=== PATIENT | male | born 1935 | race Two or more races ===

== ENCOUNTER 2025-04-18 22:02 | Inpatient (IN) | payer MEDICARE, MEDICAID, SELFPAY ==
--- NOTE | ~2025-04-18 | XR_ITS ---
CLINICAL HISTORY: cough, crackles 1 view chest x-ray. Comparison: None Findings: No consolidation or effusion. Cardiac and mediastinal contours appear unremarkable. Bones unremarkable. Impression: 1. No acute pulmonary disease. This document has been electronically signed by: Smith Echeverria MD on 04/20/2025 16:01:06
--- NOTE | ~2025-04-18 | CT_ITS ---
CLINICAL HISTORY: cool left foot, ? leg arterial clot CT angiography abdomen and pelvis with bilateral lower extremity runoff with IV contrast.MIP post processing. Comparison: None provided Findings: CT abdomen: There is a 6 mm exophytic cyst off the lower pole of the right kidney. Visualized portion of the left kidney is unremarkable. No dilated small bowel. No free fluid or free air. CT pelvis: Numerous diverticuli throughout the colon, especially the sigmoid colon. No findings of diverticulitis. Urinary bladder is moderately distended. Prostate gland is mildly enlarged. Bilateral lower extremities: No acute fracture bony destructive change. No focal muscle atrophy. No soft tissue mass seen. Vascular evaluation: Moderate vascular calcification of the abdominal aorta without dissection or aneurysmal dilatation. This extends to the iliac arteries bilaterally where there is diffuse calcification. Vessels remain patent. Both common femoral arteries are patent. Left leg: Mild vascular calcification of the left femoral artery. Moderate vascular calcification of the popliteal artery. Three-vessel runoff is identified. Moderate vascular calcification of the left calf arteries with areas of high-grade stenosis or short-segment occlusions of the anterior tibialis artery. Posterior tibialis artery and peroneal artery appear to be patent extending into the level of the ankle. Right leg: Right femoral artery is patent with moderate vascular calcification. Right popliteal artery is patent. There is three-vessel runoff. There are areas of moderate stenosis within the anterior and posterior tibialis arteries. Potential occlusion of the distal anterior tibialis artery. Posterior tibialis artery is patent throughout. IMPRESSION: 1. Multifocal vasculopathy as above. There is high-grade stenosis or short-segment occlusions of the left anterior tibialis artery. Potential occlusion of the distal right anterior tibialis artery. This document has been electronically signed by: Grayson Wood MD on 04/19/2025 01:36:21
--- NOTE | ~2025-04-18 | US_ITS ---
EXAMINATION: US TRIPLEX LOWER EXTREMITY, BILATERAL CLINICAL INFORMATION: Swelling, lower extremities COMPARISON: None available. TECHNIQUE: Color-flow triplex imaging with spectral analysis and compression Doppler were performed on the bilateral lower extremities. FINDINGS: Respiratory variation, normal compression and augmented flow are demonstrated in the interrogated common femoral vein, superficial femoral vein, profunda femoral vein, popliteal vein and midcalf peroneal and posterior tibial venous segments both lower extremities. There is no Caldwell's cyst. US/US venous duplex LE BI IMPRESSION: No acute deep venous thrombosis interrogated veins both lower extremities. Negative for DVT. Electronically signed by: Khoa Mora MD 04/19/2025 03:51 PM EDT
[2025-04-18 22:11] VITALS: BP 124/72; PULSE 60; RESP 14; TEMP 36.7; O2SAT 95; BMI 26.9
--- NOTE | 2025-04-18 22:18 | ED_ITS ---
HPI - General Adult General Chief complaint: Extremity Problem Stated complaint: both feet swollen, pain Time Seen by Provider: 04/18/25 22:18 History of Present Illness ED Provider: Keaton OVIEDO narrative: The patient is an 89-year-old man with a history of dementia, hypertension, chronic kidney disease, hypothyroidism, and hyperlipidemia. According to his daughter and son-in-law he has been having worsening edema of both of his feet over the last week. He has been seen twice by his primary care doctor and has been started on a diuretic, hydrochlorothiazide it. He has been on the hydrochlorothiazide for about a month. The swelling has continued. Tonight the family was concerned because the left foot looked discolored and they brought him to the emergency room. The patient has not complained of any pain. The patient seems pleasantly demented and has no complaints at all. There has been no chest pain or shortness of breath. As far as the daughter knows the patient has no history of vascular disease but she says that the patient has lived in [place] a lot and she does not know all of his medical history. She believes that at 1 point he had a cardiac catheterization in [place] but she does not know what that might have shown. She does not know if he has ever had an episode of atrial fibrillation. There has been no fever, sweats, chills, no abdominal pain, no nausea or vomiting. Related Data Allergies Allergy/AdvReac Type Severity Reaction Status Date / Time No Known Allergies Allergy Verified 04/18/25 22:16 Review of Systems 2 Review of Systems: Yes all other systems are reviewed and are negative [facility] Past Medical History Medical History (Updated 04/19/25 @ 06:38 by Roxanne Flores PA-C) Dementia Hypothyroid Non-sustained ventricular tachycardia Social History Social History Smoked in Last 30 Days: No Advance Directives: No Advance Directives Information Provided: Yes Do you have a plan to hurt others: No Plan Physical Exam ED Vital Signs: Vital Signs - 24 hr 04/18/25 22:11 04/19/25 00:43 04/19/25 02:19 Temperature 98.0 F 98.0 F Pulse Rate 60 65 58 Respiratory Rate 14 16 15 Blood Pressure 124/72 115/51 L 124/61 Pulse Oximetry 95 96 95 Oxygen Delivery Method Room Air Room Air Room Air BMI result Body Mass Index 27.1 Const Other: The patient is awake and alert. He seems like a pleasantly demented 89-year-old who does not appear in any distress. HENMT Other: The face is symmetrical. ?Mucous membranes moist. Eyes General: appearance normal, both eyes and all related structures Neck Neck: Yes full ROM and Yes no JVD Resp Effort & Inspection: normal respiratory effort and symmetric chest movement Cardio Rate: bradycardic Rhythm: regular rhythm Heart sounds: S1 normal heart sound present and S2 normal heart sound present GI Other: Abdomen is soft and nontender Skin Other: There is some edema to the both feet and ankles. This is more apparent on the left side. The skin of the left foot feels cooler than the skin of the right foot. No erythema. No hussein discoloration of the skin of the left foot. Neuro Other: The patient is awake and alert. He seems pleasantly demented. Cranial nerves seem grossly intact. He seems to move his extremities symmetrically. Extrem Other: There is a edema to both feet and ankles, more so on the left side. Left foot and ankle feel cool compared to the right side. I cannot appreciate pulses in either foot. However cap refill is present in both feet. Medications Administered Generic Name Dose Route Start Last Admin Trade Name Freq PRN Reason Stop Dose Admin Heparin Sodium/Sodium Chloride 25,000 unit in 250 mls @ 0 mls/hr 04/19/25 02:30 04/19/25 03:37 Heparin Sodium,Porcine/1/2ns IVCONT 14 units/kg/hr .Q0M DANIEL 9.39 mls/hr Protocol Administration Per Protocol Discontinued Medications Generic Name Dose Route Start Last Admin Trade Name Freq PRN Reason Stop Dose Admin Heparin Sodium (Porcine) 5,300 unit 04/19/25 02:20 04/19/25 03:25 Heparin Sodium,Porcine 5,000 Unit/Ml Vial 80 unit/kg (5300 unit) 04/19/25 02:21 5,300 unit IVPUSH Administration ONCE ONE Sodium Chloride 1,000 mls @ 999 mls/hr 04/19/25 01:00 04/19/25 02:19 Ns IV 04/19/25 02:00 Infused .Q1H1M DANIEL Infusion Iohexol 100 ml 04/19/25 00:40 04/19/25 00:41 Iohexol 350 Mg/Ml 100 Ml Infus..Btl IV 04/19/25 00:41 80 ml ONCE ONE Administration Metoprolol Tartrate 12.5 mg 04/19/25 05:21 04/19/25 06:08 Metoprolol Tartrate 12.5 Mg Halftab PO 04/19/25 05:22 12.5 mg ONCE ONE Administration Protocol Medical Decision Making Medical Decision Making [facility] Narrative: The patient is an 89-year-old male who was brought to the hospital today because the family felt that his left foot looked blue. He has been having problems with bilateral lower extremity swelling of the feet and ankles over the last month or so. He has been seen by his PCP and has been started on hydrochlorothiazide as a diuretic. Tonight there was a discoloration of the foot that the family found concerning and the patient was brought to the hospital. The patient had not seemed to have any pain associated with this color change but the patient is demented and seems to be a poor historian. My initial exam I thought that the left foot felt fairly cool compared to the right foot although there was no discoloration. I felt the left foot had intact capillary refill despite the coolness. My initial impression therefore was that the patient may have had some degree of arterial insufficiency causing cyanosis to the left foot with spontaneous improvement. I examined the patient a 2nd time fairly soon after my initial exam and I thought that the temperature differential between the 2 ft was lessening. Also at the time that I 1st examined him he was on a pulse oximeter and seemed to have a heart rate in the 40s obvious irregularity to his heart rate and at no point did he seemed to exhibit atrial fibrillation but I had some concern that the patient might have had some ischemia, possibly from a thrombotic event from a cardiac issue or possibly more of an occlusive event from vascular disease in the leg itself. I ordered heparin for the patient. A CT angio was done that shows vascular disease without definite thrombus. 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 In addition to the patient has cool left foot he has a sodium of 124 and he was also noted on the monitor to have fairly frequent episodes of brief runs of what may be DVT. These were all nonsustained and for the most part seemed to have 3 or 4 beats. I reviewed the case with Dr. Jones vascular surgery who did not feel there was an indication for aggressive intervention based on my description of the patient's exam. I presented the case to the hospitalist who wanted cardiology to comment on the apparent a frequent episodes of nonsustained ventricular tachycardia. Dr. Salomon recommended metoprolol tartrate 12.5 mg b.i.d.. The patient was given a dose of metoprolol tartrate and was admitted to the hospitalist service on a heparin drip for further evaluation by vascular surgery and Cardiology and an echocardiogram Lab Data 04/19/25 02:37 04/19/25 06:36 Labs: Lab Results 04/18/25 04/19/25 Range/Units 23:00 02:37 WBC 8.7 6.9 (4.8-10.8) X10*3/uL RBC 4.46 L 3.88 L (4.60-5.80) X10*6/uL Hgb 15.1 13.2 L (14.0-18.0) g/dl Hct 41.8 L 36.4 L (42.0-52.0) % MCV 93.7 93.8 (80.0-98.0) fL MCH 33.9 H 34.0 H (27.0-33.0) pg MCHC 36.1 H 36.3 H (31.0-36.0) g/dl RDW 11.7 11.8 (11.0-16.0) % Plt Count 152 L 127 L (160-400) X10*3/uL MPV 10.3 10.5 (9.4-12.4) fL Immature Gran % (Auto) 1.2 H (0.0-0.4) % Neut % (Auto) 66.8 (45-73) % Lymph % (Auto) 19.2 L (20-40) % Ritchie % (Auto) 10.4 (2-11) % Eos % (Auto) 2.1 (0-4) % Baso % (Auto) 0.3 (0-2) % Lymph # (Auto) 1.7 (1.2-4.9) X10*3/uL Ritchie # (Auto) 0.9 (0.1-1.2) X10*3/uL Eos # (Auto) 0.2 (0.0-0.4) X10*3/uL Baso # (Auto) 0.0 (0.0-0.2) X10*3/uL Abs Immat Gran (auto) 0.10 H (0.00-0.03) X10*3/uL Absolute Neuts (auto) 5.8 (2.0-8.3) x10*3/uL Absolute Nucleated RBC 0.000 0.000 (0.0-0.012) X10*3/uL Nucleated RBC % (auto) 0.0 0.0 (0.0-0.2) /100WBC PT 11.3 (10.9-12.4) SEC INR 1.0 (0.9-1.1) aPTT Heparin Protocol 26.8 L (53-77.9) SEC Sodium 124 L (135-145) mmol/L Potassium 4.2 (3.3-5.1) mmol/L Chloride 90 L (96-108) mmol/L Carbon Dioxide 25 (22-29) mmol/L Anion Gap 13 (12-20) BUN 16 (9-16) mg/dL Creatinine 1.63 H (0.5-1.4) mg/dL Estim Creat Clear Calc 25.8 Estimated GFR 40 Random Glucose 86 (60-115) mg/dL Calcium 9.4 (8.4-10.2) mg/dL Magnesium 2.0 (1.6-2.6) mg/dL Total Bilirubin 0.6 (0.0-1.0) mg/dL Direct Bilirubin 0.2 (0.0-0.5) mg/dL AST 23 (5-37) U/L ALT 21 (0-40) U/L Alkaline Phosphatase 120 H (39-117) U/L Total Creatine Kinase 153 (38-174) U/L Troponin I High Sens 6.8 (<3.5-35.0) ng/L NT-Pro-B Natriuret Pep 193.8 (<300) pg/mL Total Protein 6.8 (6.5-8.0) g/dL Albumin 4.5 (3.5-5.0) g/dL TSH 8.46 H (0.32-4.0) uIU/mL Free T4 1.12 (0.71-1.85) ng/dL Critical Care Time Critical Care Time Critical Care Time: Yes Total Critical Care Time: 35 Attestation: The patient was critically ill with a high probability of imminent or life- threatening deterioration. ?I spent greater than 30 minutes of discontinuous time evaluating the patient, delivering critical care at the bedside, discussing evaluating data with consultants. ?Critical care time does not include time spent performing separately billable procedures or teaching. ?Time spent performing critical care with 35 minutes. Discharge Plan Discharge Clinical Impression: Ischemia of left lower extremity, Hyponatremia, Non-sustained ventricular tachycardia Patient Disposition: Admitted As Inpatient
--- NOTE | 2025-04-18 22:28 | ECG_ITS ---
Test Reason : swelling Blood Pressure : */* mmHG Vent. Rate : 60 BPM Atrial Rate : 60 BPM P-R Int : 146 ms QRS Dur : 104 ms QT Int : 402 ms P-R-T Axes : 21 -22 22 degrees QTcB Int : 402 ms Normal sinus rhythm Possible Lateral infarct , age undetermined Inferior infarct , age undetermined Abnormal ECG No previous ECGs available Referred By: Aly Pugh Electronically Signed By: GABBY AVINA MD
--- OUTSIDE RECORDS SUMMARY | 2025-04-18 22:41 | XMS_ITS | Clinical Summary ---
Author Organization [facility] Address [address] [place] [address] Care Team Providers Care Pulmonary Specialist Name Role Phone Loenor Deleon PA-C Primary Care Provider [phone] Source Comments PLEASE NOTE, if this patient is a minor, it may be UNLAWFUL to discuss sensitive information that is contained in these records (such as FAMILY PLANNING, MENTAL HEALTH or SUBSTANCE ABUSE) with the minor patient's parent or other person without the patient's specific authorization.[facility] Allergies No known active allergies Medications ciclopirox (PENLAC) 8 % solution 020 Active miscellaneous medical supply miscIndications:M katia impairment of gradual onset,At risk for falls by miscellaneous route daily Shower chair. Lifetime need it. 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 Walker with seat and four wheels. Lifetime need it. BMI 26.98 1 Each 023 Active acetaminophen (TYLENOL) 500 mg tabletIndications :Right hip pain Take 2 Tablets by mouth every 6 (six) hours as needed for pain 60 Tablet 1 023 Active diclofenac sodium (VOLTAREN) 1 % gelIndications:Ri ght hip pain Apply topically 2 (two) times daily 100 g 1 023 Active MISCELLANEOUS MEDICAL SUPPLY MISCIndications:U rinary incontinence, unspecified type by miscellaneous route daily. Order incontinence pad/liners for incontinence. Use 1-x daily prn. Need lifetime 100 Each Active MISCELLANEOUS MEDICAL SUPPLY MISCIndications:P oor appetite by miscellaneous route 2 (two) times a day Ensure to take twice a day. BMI 25.42. Lifetime need it. 60 Each 2 024 Active MISCELLANEOUS MEDICAL SUPPLY MISCIndications:U rinary incontinence, unspecified type Order Pull up Diapers Size small for incontinence. Use 1-8x daily prn. Need lifetime. 100 Each 024 Active MISCELLANEOUS MEDICAL SUPPLY MISCIndications:U rinary incontinence, unspecified type by miscellaneous route daily. Order xlarge gloves. Use as needed. Need lifetime 100 Each 024 Active MISCELLANEOUS MEDICAL SUPPLY MISCIndications:U rinary incontinence, unspecified type by miscellaneous route daily. Order discopasble wipes for incontinence. Use 1-8x daily as needed. Need lifetime. 100 Each 024 Active hydrOXYzine HCL (ATARAX) 25 mg tabletIndications :Insomnia, unspecified type Take 1 Tablet by mouth nightly at bedtime as needed for sleep 30 Tablet 025 Active atorvastatin (LIPITOR) 40 mg tabletIndications :Mixed hyperlipidemia TAKE 1 TABLET BY MOUTH DAILY 90 Tablet 2 025 Active levothyroxine 88 mcg tabletIndications :Hypothyroidism, unspecified type Take 1 Tablet by mouth every morning before breakfast. 90 Tablet 025 Active hydroCHLOROthiazi de (HYDRODIURIL) 25 mg tabletIndications :Peripheral edema,Hypertensio n, unspecified type Take 1 Tablet by mouth once daily. 90 Tablet 3 025 Active compr.stocking,kn ee,long,largeIndi cations:Periphera l edema,Hypertensio n, unspecified type Compress 10-15 mmHg for peripheral edema. Disp 2 x99 years. 2 Each 025 Active mirtazapine (REMERON) 30 mg tabletIndications :Insomnia, unspecified type TAKE 1 TABLET BY MOUTH EVERY NIGHT AT BEDTIME 90 Tablet 025 Active lisinopriL 10 mg tabletIndications :Essential hypertension,BMI 25.0-25.9,adult TAKE 1 TABLET BY MOUTH DAILY 90 Tablet 1 025 Active melatonin 3 mg tabletIndications :Insomnia, unspecified type Take 1 Tablet by mouth nightly at bedtime as needed for sleep for up to 90 days 90 Tablet 025 2024 Discontinued(T herapy completed/Not needed) lisinopriL 10 mg tabletIndications :Essential hypertension,BMI 25.0-25.9,adult TAKE 1 TABLET BY MOUTH DAILY 90 Tablet 1 025 2024 Discontinued mirtazapine (REMERON) 30 mg tabletIndications :Insomnia, unspecified type TAKE 1 TABLET BY MOUTH EVERY NIGHT AT BEDTIME 90 Tablet 025 2024 Discontinued furosemide (LASIX) 40 mg tabletIndications :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 5 Tablet 025 2024 Discontinued(T herapy completed/Not needed) compr.stocking,kn ee,long,largeIndi cations:Periphera l edema Compress 10-15 mmHg for peripheral edema. Disp 2 x99 years for peripheral edema. 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 Diagnosed on 09/2020 [facility]. Onychomycosis 05/02/2020 Hypothyroidism 08/15/2019 Essential hypertension 06/26/2019 History of colon cancer 06/26/2019 Overview (06/26/2019): Diagnosed at age 72. Had operation and chemotherapy. Last colonoscopy 2 years ago in [place]. 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 Had surgery 2 years ago for clogged artery in [place]. Daughter does not know much information. Pt reports having a vein in the heart that doctors told him can not operate on. Assessment & Plan (06/26/2019 9:39 AM EST): Memory impairment of gradual onset 06/26/2019 Encounters Date Type Department Care Team Description 04/05/2025 Results Follow-Up [address] [id number] Molly Ordoñez PA-C 03/29/2025 4:40 PM EDT Office Visit [address] [phone] Child, TateGIRISH Maria C 03/23/2025 2:20 PM EDT Office Visit [address] [phone] Molly Ordoñez PA-C from Last 3 Months Immunizations Immunization Administration Dates Next Due Flu, Adjuvant, 65y+ (Fluad) 06/08/2021 Flu, High Dose, 65y+, Fluzone High Dose 04/12/20 22,04/22/2020 Moderna COVID-19 Vaccine, re d cap blue label, 12+ Primary Series 01/18/2022,09/13/2020,08/16/2020 PNEUMOCOCCAL CONJUGATE PCV 13 11/07/2020 PNEUMOCOCCAL CONJUGATE PCV 20 (Prevnar 20) 04/12 TDAP 04/13/2019 ZOSTER VACCINE, RECOMBINANT (SHINGRIX) 1,11/07/2020 Family History Relation Name Status Comments Sister Alive Social History Tobacco Use Types Packs/Day Years Used Date Smoking Tobacco: Never Smokeless Tobacco: Never Tobacco Cessation:Counseling Given: Not Answered Alcohol Use Standard Drinks/Week Comments Never 0 (1 standard drink = 0.6 oz pur e alcohol) Social Connections Answer Date Recorded How often do you feel lonely or isolated from th ose around you? 1 07/04/2024 Financial Resource Strain Answer Date R ecorded Hard to pay for: Food 1 07/04/2024 Stress Answer Date Recorded Do you feel these kinds of stress these days? 1 07/04/2024 Physical Activity Answer Date Recorded Physical Activity 0 06/26/2019 Food Insecurity Answer Date Recorded Hard to pay for: Food 1 07/04/2024 Transportation Needs Answer Date Record ed Hard to pay for: Transportation 1 07/04/2024 Housing Stability Answer Date Recorded Hard to pay for: Rent/Mortgage payment 1 07/04/2024 Safety and Environment Answer Date Omer rded Safety 0 06/26/2019 Utilities Answer Date Recorded Hard to pay for: Utilities 1 07/04 Employment Answer Date Recorded Employment 0 06/26/2019 Sex and Gender Information Value Date Recorded Sex Assigned at Male 06/26/2019 7:02 AM PST Legal Sex Male 12:16 PM PST Gender Identity Male 06/26/2019 7:02 AM PST Sexual Orientation Straight 06/26/2019 7: 02 AM PST Last Filed Vital Signs Vital Sign Reading Time Taken Comments Blood Pressure 157/82 03/29/2025 4:38 PM EDT Pulse 74 03/29/2025 4:38 PM EDT Temperature 37.1 C (98.7 F) 03/29/2025 4:38 PM EDT Respiratory Rate 16 03/29/2025 4:38 PM EDT Oxygen Saturation 96% 12/17/2024 3:36 PM EDT Inhaled Oxygen Concentration - - Weight 68.9 kg (152 lb) 03/29/2025 4:38 PM EDT Height 157.5 cm (5' 2 ) 10/28/2023 3:21 PM EDT Body Mass Index 27.8 10/28/2023 3:21 PM EDT Plan of Treatment Upcoming Encounters Date Type Department Care Team (Late st Contact Info) Description 04/29/2025 4:00 PM EST Office Visit [facility] [address] [place] [address] Leonor Deleon PA-C [address] [place] [address] Health Maintenance Due Date Last Done Comments Advanced Care Planning 1935 Medicare Annual Wellness Visit 1953 Imm-RSV (adult) (1 - 1-dose 75+ series) 2010 Falls Prevention 05/25/2023 05/25/2022, , 08/15/2019 Flz-HHARU-74 (4 - season) 2025 01/18/2022, 09/13/2020, 08/16/2020 Imm-Influenza (#1) 2025 03/31/2024, 1 , 06/08/2021, Additional history exists TSH Monitoring 07/04/2025 07/04/2024, 08/2023, 11/15/2022, Additional history exists Tobacco Screening 07/04/2025 07/04/2024 Lipid Screening 03/29/2026 03/29/2025, 10/26, 01/18/2022, Additional history exists Imm-DTaP/Tdap/Td (2 - Td or Tdap) 04/13/2029 019 Imm-Zoster, Recombinant Completed 01/14/2021, 11/07 Imm-Pneumococcal 50+ Completed 04/12/2022, 11/08/19 21 Alcohol and Drug Screen Completed 07/04/19, 10/28/2023, 11/15/2022, Additional history exists Depression Annual Screen Completed 07/04/2024, 07/28 Procedures Procedure Name Priority Date/Time Associated Diagnosis Comments BNP,NT PRO BNP Routine 03/29/2025 9:26 AM EDT LIPIDS W RFLX TO DIRECT LDL Routine 03/29/2025 9:26 AM EDT 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 Essential hypertension Bilateral swelling of feet COMPREHENSIVE METABOLIC PANEL Routine 03/29/2025 9:26 AM EDT 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 Essential hypertension Bilateral swelling of feet BLOOD COUNT COMPLETE AUTO&AUTO DIFRNTL WBC Routine 03/29/2025 9:26 AM EDT 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 Essential hypertension Bilateral swelling of feet MEDICATIONS SCANNED DOCUMENT 03/06/2025 3:00 AM EDT OTHER ORDERS SCANNED DOCUMENT 02/27/2025 3:00 AM EDT OTHER ORDERS SCANNED DOCUMENT 02/27/2025 3:00 AM EDT TSH W/RFLX FREE T4 Routine 07/04/2024 3: 03 PM EST Hypothyroidism, unspecified type from Last 3 Months or Most Recently Relevant to Health Maintenance Results * BNP,NT PRO BNP Routine (03/29/2025 9:26 AM EDT) PROBNP, N TERMINAL 155 <450 pg/mL 03/30/2025 8:02 PM EDT [facility] 03/29/2025 9:26 AM EDT 03/30/2025 4:28 PM EDT [employer] - 03/30/2025 8:03 PM EDT FASTING:YES Molly Ordoñez PA-C LAB - BLOOD DRAW Final Resul t [facility] [address] [place] [phone], [facility] [address] [id number] * LIPIDS W RFLX TO DIRECT LDL Routine (03/29/2025 9:26 AM EDT) CHOLESTEROL, TOTAL 163 <200 mg/dL 03/30/2025 2:39 PM EDT [facility] HDL CHOLESTEROL 56 > OR = 40 mg/dL 03/30/2025 2:39 PM EDT [facility] TRIGLYCERIDES 131 <150 mg/dL 03/30/2025 2:39 PM EDT [facility] LDL-CHOLESTEROL 84 mg/dL (calc) 03/30/2025 2:39 PM EDT [facility] CHOL/HDLC RATIO 2.9 <5.0 (calc) 03/30/2025 2:39 PM EDT [facility] NON-HDL CHOLESTEROL 107 <130 mg/dL (calc) 03/30/2025 2:39 PM EDT [employer] Blood Blood / Unknown 03/29/2025 9 :26 AM EDT 03/30/2025 1:30 PM EDT [employer] - 03/30/2025 2:42 PM EDT FASTING:YES Reference range: <100 . Desirable range <100 mg/dL for primary prevention; <70 mg/dL for patients with CHD or diabetic patients with > or = 2 CHD risk factors. . LDL-C is now calculated using the Pooja calculation, which is a validated novel method providing better accuracy than the Friedewald equation in the estimation of LDL-C. Bro SS et al. ELEN. 2013;310(19): 7601-7790 (http://education.Deem/faq/WVT571) For patients with diabetes plus 1 major ASCVD risk factor, treating to a non-HDL-C goal of <100 mg/dL (LDL-C of <70 mg/dL) is considered a therapeutic option. Molly Ordoñez PA-C LAB - BLOOD DRAW Final Resul t [facility] [address] [place] [phone], [facility] [address] [address] * (ABNORMAL) BLOOD COUNT COMPLETE AUTO&AUTO DIFRNTL WBC Routine (03/29/2025 9:26 AM EDT) WHITE BLOOD CELL COUNT 5.1 3.8 - 10.8 Thousand/ uL 03/30/2025 4:26 AM EDT [facility] RED BLOOD CELL COUNT 4.17(L) 4.20 - 5.80 Million/u L 03/30/2025 4:26 AM EDT [facility] HEMOGLOBIN 14.6 13.2 - 17.1 g/dL 03/30/2025 4:26 AM EDT [facility] HEMATOCRIT 42.6 38.5 - 50.0 % 03/30/2025 4:26 AM EDT [facility] MCV 102.2(H) 80.0 - 100.0 fL 03/30/2025 4:26 AM [employer]DSiT[employer] [facility] MCH 35.0(H) 27.0 - 33.0 pg 03/30/2025 4:26 AM EDE[facility] MCHC 34.3 32.0 - 36.0 g/dL 03/30/2025 4:26 AM [employer] RDW 11.8 11.0 - 15.0 % 03/30/2025 4:26 AM [employer] [facility] PLATELET COUNT 143 140 - 400 Thousand/ uL 03/30/2025 4:26 AM [employer] MPV 11.4 7.5 - 12.5 fL 03/30/2025 4:26 AM [employer] [facility] ABSOLUTE NEUTROPHILS 2,912 1,500 - 7,800 cells/uL 03/30/2025 4:26 AM [employer] ABSOLUTE LYMPHOCYTES 1,469 850 - 3,900 cells/uL 03/30/2025 4:26 AM [employer] ABSOLUTE MONOCYTES 505 200 - 950 cells/uL 03/30/2025 4:26 AM [employer] [facility] ABSOLUTE EOSINOPHILS 184 15 - 500 cells/uL 03/30/2025 4:26 AM [employer] [facility] ABSOLUTE BASOPHILS 31 0 - 200 cells/uL 03/30/2025 4:26 AM [employer] NEUTROPHILS PCT 57.1 % 4:26 AM [facility] LYMPHOCYTES 28.8 % 03/30/2025 4:26 AM [employer] MONOCYTES 9.9 % 03/30/2025 4:26 AM [facility] EOSINOPHILS 3.6 % 03/30/2025 4:26 AM [employer] BASOPHILS 0.6 % 03/30/2025 4:26 AM [employer] Blood Blood / Unknown 03/29/2025 9 :26 AM EDT 03/30/2025 4:18 AM EDT [employer] [facility] - 03/30/2025 4:26 AM EDT FASTING:YES For adults, a slight decrease in the calculated MCHC value (in the range of 30 to 32 g/dL) is most likely not clinically significant; however, it should be interpreted with caution in correlation with other red cell parameters and the patient's clinical condition. us Molly Ordoñez PA-C LAB - BLOOD DRAW Final Resul t [facility] [address] [address], [facility] [address] [place] [address] * (ABNORMAL) COMPREHENSIVE METABOLIC PANEL Routine (03/29/2025 9:26 AM EDT) Pathologist [facility] GLUCOSE 100(H) 65 - 99 mg/dL 03/30/2025 2:39 PM EDT [facility] UREA NITROGEN (BUN) 21 7 - 25 mg/dL 03/30/2025 2:39 PM EDT [facility] CREATININE (blood) 1.70(H) 0.70 - 1.22 mg/dL 03/30/2025 2:39 PM EDT [facility] EGFR 38(L) > OR = 60 mL/min/1. 73m2 03/30/2025 2:39 PM EDT [facility] BUN/CREATININE RATIO 12 6 - 22 (calc) 03/30/2025 2:39 PM EDT [facility] SODIUM 133(L) 135 - 146 mmol/L 03/30/2025 2:39 PM EDT [facility] POTASSIUM 5.3 3.5 - 5.3 mmol/L 03/30/2025 2:39 PM EDT [facility] CHLORIDE 99 98 - 110 mmol/L 03/30/2025 2:39 PM EDT [facility] CARBON DIOXIDE 26 20 - 32 mmol/L 03/30/2025 2:39 PM EDT [facility] CALCIUM 9.3 8.6 - 10.3 mg/dL 03/30/2025 2:39 PM EDT [facility] PROTEIN, TOTAL 6.4 6.1 - 8.1 g/dL 03/30/2025 2:39 PM EDT [facility] ALBUMIN 4.0 3.6 - 5.1 g/dL 03/30/2025 2:39 PM EDSiTune [facility] GLOBULIN 2.4 1.9 - 3.7 g/dL (calc) 03/30/2025 2:39 PM EDEvestra [facility] ALBUMIN/GLOBULI N RATIO 1.7 1.0 - 2.5 (calc) 03/30/2025 2:39 PM EDT [facility] BILIRUBIN, TOTAL 0.7 0.2 - 1.2 mg/dL 03/30/2025 2:39 PM EDT [facility] ALKALINE PHOSPHATASE 98 35 - 144 U/L 03/30/2025 2:39 PM EDT [facility] AST 20 10 - 35 U/L 03/30/2025 2:39 PM EDT [facility] ALT 17 9 - 46 U/L 03/30/2025 2:39 PM EDT [facility] Blood Blood / Unknown 03/29/2025 9 :26 AM EDT 03/30/2025 1:30 PM EDT [facility]arrative [facility] - 03/30/2025 2:42 PM EDT FASTING:YES . Fasting reference interval . For someone without known diabetes, a glucose value between 100 and 125 mg/dL is consistent with prediabetes and should be confirmed with a follow-up test. . Molly Ordoñez PA-C LAB - BLOOD DRAW Final Resul t [facility] [address] [place] [id number], [facility] [address] [place] [phone] * MEDICATIONS SCANNED DOCUMENT (03/06/2025 3:00 AM EDT) 03/06/2025 3:00 AM EDT [facility] Provider Default SCAN MEDS OTHER ORDERS Fin al Result * OTHER ORDERS SCANNED DOCUMENT (02/27/2025 3:00 AM EDT) Only the most recent of2 resultswithin the time period is included. 02/27/2025 3:00 AM EDT Leonor Deleon PA-C SCAN OTHER ORDERS Final Resu lt * TSH W/RFLX FREE T4 (07/04/2024 3:03 PM EST) TSH W/REFLEX TO FT4 3.35 0.40 - 4.50 mIU/L [facility] [place] [facility] Blood Blood / Unknown 07/04/2024 3 :03 PM EST 07/04/2024 3:09 PM EST Leonor Deleon PA-C LAB - BLOOD DRAW Edited Resu lt - Final [facility] [address] [address], [facility] [place] [facility] [address] [place] [address] from Last 3 Months or Most Recently Relevant to Health Maintenance Insurance [place] Care Teams Pulmonary Specialist Relationship Specialty Start Date End Date Leonor Deleon PA-C [address] [place] [address] PCP - General Internal Medicine 11/03/21
--- OUTSIDE RECORDS SUMMARY | 2025-04-18 22:41 | XMS_ITS | Clinical Summary ---
Author Organization [facility] Address [address] [place] [address] Phone Care Team Providers Care Team Lead Name Role Phone Leonor Deleon PA-C Primary Care Provider [phone] Allergies No known active allergies Medications acetaminophen (TYLENOL) 500 MG tablet Take 1,000 mg by mouth every 6 (six) hours if needed 04/07/2022 Active atorvastatin (LIPITOR) 40 MG tablet Take 40 mg by mouth in the morning. 04/07/2022 Active cyanocobalamin (VITAMIN B-12) 1000 MCG tablet Take 1,000 mcg by mouth in the morning. 05/25/2022 Active lisinopril 40 MG tablet Take 40 mg by mouth 1 (one) time each day 07/27/2022 Active Melatonin 5 MG tablet Take 1 tablet by mouth every night 04/07/2022 Active levothyroxine sodium (TIROSINT) 100 MCG capsule Take by mouth Active Active Problems Problem Noted Date Diagnosed Date Stage 3b chronic kidney disease 03/17/2023 Renal osteodystrophy 03/17/2023 Presenile dementia 11/07/2020 Overview (09/14/2022): Dementia mixed (elements of Alzhermer's and possible vascular etiologies). Diagnosed on 09/2020 [facility]. Onychomycosis 05/02/2020 Hypothyroidism 08/15/2019 Coronary atherosclerosis 06/26/2019 Overview (09/14/2022): [place] by [place] Had surgery 2 years ago for clogged artery in [place]. Daughter does not know much information. Pt reports having a vein in the heart that doctors told him can not operate on. Last Assessment & Plan: Essential hypertension 06/26/2019 History of malignant neoplasm of colon 9 Overview (09/14/2022): Diagnosed at age 72. Had operation and chemotherapy. Last colonoscopy 2 years ago in [place]. Memory impairment 06/26/2019 Immunizations Immunization Administration Dates Next Due Influenza, Unspecified 04/12/2022,04/22/2020 Moderna SARS-COV-2 01/18/2022,09/13/2020, 021 Pneumococcal Conjugate 13-Valent 11/07/2020 Pneumococcal Conjugate Pcv 20 04/12/2022 Shingrix 01/14/2021,11/07/2020 Tdap 04/13/2019 Social History Tobacco Use Types Packs/Day Years Used Date Smoking Tobacco: Never Assessed Sex and Gender Information Value Date Recorded Sex Assigned at Not on file Legal Sex Male 8:09 AM EST Gender Identity Not on file Sexual Orientation Not on file Last Filed Vital Signs Vital Sign Reading Time Taken Comments Blood Pressure 122/67 03/17/2023 2:27 PM EDT Pulse 86 03/17/2023 2:27 PM EDT Temperature - - Respiratory Rate - - Oxygen Saturation 98% 03/17/2023 2:27 PM EDT Inhaled Oxygen Concentration - - Weight 64.7 kg (142 lb 9.6 oz) 03/17/2023 2:27 P M EDT Height - - Body Mass Index - - Plan of Treatment Health Maintenance Due Date Last Done Comments Influenza Vaccine (#1) 2025 2, 04/22/2020 Pneumococcal Vaccine: 50+ Years Completed 04/12/2022, 11/07/2020 Hepatitis B Vaccine Aged Out No longe r eligible based on patient's age to complete this topic Insurance Medicare Medicaid [place] Medicare Medicaid [place] Care Teams Team Lead Relationship Specialty Start Date End Date Leonor Deleon PA-C [address] [place] [id number] PCP - General Physician Flour Tester 05/26/22
--- OUTSIDE RECORDS SUMMARY | 2025-04-18 22:41 | XMS_ITS | Clinical Summary ---
Author Organization [facility] [place] Address [address] [place] [address] Phone Care Team Providers Care Surveillance Analyst Name Role Phone Leonor Deleon Primary Care Provider Surgical History Surgery Date Site/Laterality Comments OTHER SURGICAL HISTORY PROCEDURE: CA LAPS COLECTOMY PRTL W/END CLST & CLSR DSTL SGM Medical History Medical History Date Comments Essential hypertension DX:Essent ial hypertension Hypothyroidism DX:Hypothyroidis m History of colon cancer DX:Histo ry of colon cancer Memory impairment of gradual onset DX:Memory impairment of gradual onset Onychomycosis DX:Onychomycosis Coronary artery disease invo lving [place] coronary artery with angina pectoris (CMS/HCC V24) DX:Coronary artery disease i nvolving [place] coronary artery with angina pectoris (HCC) Social History Tobacco Use Types Packs/Day Years Used Date Smoking Tobacco: Never Smokeless Tobacco: Never Alcohol Use Standard Drinks/Week Comments No 0 (1 standard drink = 0.6 oz pur e alcohol) Sex and Gender Information Value Date Recorded Sex Assigned at Not on file Legal Sex Male 6:03 PM EST Gender Identity Not on file Sexual Orientation Not on file Obstetrics History Plan of Treatment Health Maintenance Due Date Last Done Comments Pneumococcal Vaccine: 50+ Ye ars (1 of 1 - PCV) 1985 Zoster Vaccines (1 of 2) 1985 RSV Immunization Adult Patie nts (1 - 1-dose 75+ series) 2010 Cholesterol Screening (Lipid Panel) 04/05/2024 Falls Risk Assessment 04/05/2024 Social Influencers of Health Screening 04/05/2024 Depression Screening 06/27/2024 Hypertension/CHF/CAD Annual BMP Blood Test 07/05/2024 COVID-19 Vaccine (1 - 2023-2 5 season) 2025 Influenza Vaccine (#1) 2025 DTaP,Tdap,and Td Vaccines (2 - Td or Tdap) 04/13/2029 04/13/2019 HIB Vaccines Aged Out No longer eligi ble based on patient's age to complete this topic HPV Vaccines Aged Out No longer eligi ble based on patient's age to complete this topic Hepatitis A Vaccines Aged Out No long er eligible based on patient's age to complete this topic Hepatitis B Vaccines Aged Out No long er eligible based on patient's age to complete this topic IPV Vaccines Aged Out No longer eligi ble based on patient's age to complete this topic MMR Vaccines Aged Out No longer eligi ble based on patient's age to complete this topic Meningococcal ACWY Vaccine Aged Out N o longer eligible based on patient's age to complete this topic Meningococcal B Vaccine Aged Out No l onger eligible based on patient's age to complete this topic RSV Immunization Patients Un bartolome 20 months Aged Out No longer eligible b ased on patient's age to complete this topic Varicella Vaccines Aged Out No longer eligible based on patient's age to complete this topic Care Teams Surveillance Analyst Relationship Specialty Start Date End Date Leonor Deleon PA [facility] [place] [address] PCP - General 08/10/23
--- OUTSIDE RECORDS SUMMARY | 2025-04-18 22:41 | XMS_ITS | Encounter Summary ---
Author Organization [facility] Address [address] [place] [address] Care Team Providers Care Certified Surgical Technologist Name Role Phone Leonor Deleon PA-C Primary Care Provider + [phone] Encounter Details Date Type Department Care Team (Late st Contact Info) Description 04/05/2025 Results Follow-Up [facility] [address] [place] [address] Molly Ordoñez PA-C [address] [place] [id number] Social History Tobacco Use Types Packs/Day Years Used Date Smoking Tobacco: Never Smokeless Tobacco: Never Alcohol Use Standard Drinks/Week Comments Never 0 [...] Orientation Straight 06/26/2019 7: 02 AM PST documented as of this encounter Plan of Treatment Upcoming Encounters Date Type Department Care Team (Late st Contact Info) Description 04/29/2025 4:00 PM EST Office Visit [facility] [address] [place] [address] Leonor Deleon PA-C [address] [place] [id number] documented as of this encounter Visit Diagnoses Not on filedocumented in this encounter Additional Health Concerns Assessment Noted Time PHQ-9 Depression Total Score: 3 07/04/19 25 2:27 PM PST documented as of this encounter Care Teams Certified Surgical Technologist Relationship Specialty Start Date End Date Leonor Deleon PA-C [address] [place] [id number] PCP - General Internal Medicine 11/03/21 documented as of this encounter
[2025-04-18 23:06] LABS: MANUAL DIFF FLAG NO
[2025-04-18 23:07] LABS: Hematocrit 41.8 % (42.0-52.0); Hemoglobin 15.1 g/dl (14.0-18.0); Imm Gran Abs Auto 0.10 X10*3/uL (0.00-0.03); Imm Gran Pct Auto 1.2 % (0.0-0.4); Lymphocytes Absolute Auto 1.7 X10*3/uL (1.2-4.9); Mean Corpuscular HGB Conc 36.1 g/dl (31.0-36.0); Mean Corpuscular Hemoglobin 33.9 pg (27.0-33.0); Mean Corpuscular Volume 93.7 fL (80.0-98.0); NRBC Abs Auto 0.000 X10*3/uL (0.0-0.012); NRBC Pct Auto 0.0 /100WBC (0.0-0.2); Platelet Count 152 X10*3/uL (160-400); Red Blood Count 4.46 X10*6/uL (4.60-5.80); White Blood Count 8.7 X10*3/uL (4.8-10.8)
[2025-04-18 23:21] LABS: Alanine Aminotransferase 21 U/L (0-40); Albumin Level 4.5 g/dL (3.5-5.0); Alkaline Phosphatase 120 U/L (39-117); Anion Gap 13 (12-20); Aspartate Amino Transferase 23 U/L (5-37); Blood Urea Nitrogen 16 mg/dL (9-16); Calcium 9.4 mg/dL (8.4-10.2); Carbon Dioxide 25 mmol/L (22-29); Chloride 90 mmol/L (96-108); Creatinine Clr Calc Pharmacy 25.8; Estimated Glomerular Filt Rate 40; Magnesium 2.0 mg/dL (1.6-2.6); Potassium 4.2 mmol/L (3.3-5.1); Sodium 124 mmol/L (135-145); Total Protein 6.8 g/dL (6.5-8.0)
[2025-04-18 23:28] LABS: Troponin-I High Sensitivity 6.8 ng/L (<3.5-35.0)
[2025-04-19] VITALS (9 sets, daily range): BP systolic 115–130; BP diastolic 51–71; PULSE 51–76; RESP 11–20; TEMP 36.1–37.1; O2SAT 95–99; BMI 27.1
[2025-04-19] MEDS: iohexoL 350 MG/ML 100 ML INFUS..BTL IV (00:41)
[2025-04-19 01:04] LABS: NT Pro B Type Natriuretic Pept 193.8 pg/mL (<300)
[2025-04-19 02:44] LABS: NRBC Abs Auto 0.000 X10*3/uL (0.0-0.012); NRBC Pct Auto 0.0 /100WBC (0.0-0.2); PLT CLUMP 1
[2025-04-19 02:45] LABS: Hematocrit 36.4 % (42.0-52.0); Hemoglobin 13.2 g/dl (14.0-18.0); Mean Corpuscular HGB Conc 36.3 g/dl (31.0-36.0); Mean Corpuscular Hemoglobin 34.0 pg (27.0-33.0); Mean Corpuscular Volume 93.8 fL (80.0-98.0); Red Blood Count 3.88 X10*6/uL (4.60-5.80)
[2025-04-19 02:52] LABS: INTERNATIONAL NORM RATIO 1.0 (0.9-1.1); Prothrombin Time 11.3 SEC (10.9-12.4)
[2025-04-19 02:54] LABS: PTT Heparin Drip 26.8 SEC (53-77.9)
--- NOTE | 2025-04-19 03:00 | ECG_ITS ---
Test Reason : LANDY Blood Pressure : */* mmHG Vent. Rate : 57 BPM Atrial Rate : 57 BPM P-R Int : 148 ms QRS Dur : 104 ms QT Int : 424 ms P-R-T Axes : 18 -25 10 degrees QTcB Int : 412 ms Sinus bradycardia Possible Lateral infarct (cited on or before 18-Apr-2025) Inferior infarct (cited on or before 18-Apr-2025) Abnormal ECG When compared with ECG of 18-Apr-2025 22:54, No significant change was found Referred By: Aly Pugh Electronically Signed By: GABBY AVINA MD
[2025-04-19] MEDS: Heparin Sodium,Porcine/1/2NS 25,000 UNIT/250 ML IV.SOLN 9.39 UNIT IVCONT (03:37)
--- NOTE | 2025-04-19 04:29 | PC.NURSE ---
pt from home brought in by family with complaint of bilateral foot swelling, worsening on the left, over the last week. Pt denies any changes in gait, pain in feet, sob, chest pain, injuries or recent travel. Per family foot looked discolored, unknown hx of vascular disease, chf. Ankles noted to have pitting edema, cap refill present but unable to palpate pedal pulses. CTA of the lower extremities showed stenosis in the tibial artery, pt started on heparin drip per protocol. Pt has 20G IV in lac. Pt is ca&o to self and place, primarily peruvian speaking. Labs: sodium- 124 creatinine- 1.63 Lower Extremity CTA: IMPRESSION: 1. Multifocal vasculopathy as above. There is high-grade stenosis or short-segment occlusions of the left anterior tibialis artery. Potential occlusion of the distal right anterior tibialis artery.
[2025-04-19 04:40] LABS: Platelet Count 127 X10*3/uL (160-400); White Blood Count 6.9 X10*3/uL (4.8-10.8)
[2025-04-19 05:13] LABS: Troponin-I High Sensitivity 6.5 ng/L (<3.5-35.0)
[2025-04-19 05:58] LABS: Thyroid Stimulating Hormone 8.46 uIU/mL (0.32-4.0)
[2025-04-19] MEDS: Metoprolol Tartrate 12.5 MG HALFTAB PO (06:08)
--- NOTE | 2025-04-19 06:33 | PM.IMHP ---
History of Present Illness Date of Service: 04/19/25 Attending physician on admission: Wesley Bui Chief Complaint: L foot cold, blue Patient is an 89-year-old male with a past medical history significant for hypothyroid, CAD, HLD, dementia, who presented to the ED due to discoloration of the left foot. The patient was brought in by his daughter due to a blue left foot which was reportedly called and coloration improved as he arrived to the ED. The patient has been seeing his PCP over the past week and has had adjustments twice due to pedal edema, he was started on hydrochlorothiazide. Pulses were not present bilaterally upon arrival over capillary refill normal. The patient denies any pain in his completely asymptomatic. He is unable to provide a history due to his dementia. In the ED he was also found to be bradycardic, concern for AFib however not seen on telemetry or EKG. He had very frequent short bursts of ectopy. Animal Taxonomist was consulted in the ED who suggested metoprolol and an echocardiogram. Dr. Jones is aware of the patient and suggested heparin drip and admission with vascular consultation. Of note patient was also found to be hyponatremic. [facility] Medical History Dementia Hypothyroid Non-sustained ventricular tachycardia Social History Household Members: Children Household Members Other:: daughter Housing: Apartment Do you presently have visiting nurse or other home services: Yes (program [id number]) Patient Tobacco Use Status: Never used Tobacco Meds Allergies Allergy/AdvReac Type Severity Reaction Status Date / Time No Known Allergies Allergy Verified 04/18/25 22:16 Active Medications: Current Medications Acetaminophen (Acetaminophen 325 Mg Tablet) 650 mg PO Q6H PRN PRN Reason: Pain, Mild 1-3,fever,headache Atorvastatin Calcium (Atorvastatin Calcium 40 Mg Tablet) 40 mg PO DAILY DANIEL Calcium Carbonate (Calcium Carbonate 750 Mg Tab.Chew) 750 mg PO Q4H PRN PRN Reason: Heartburn Heparin Sodium (Porcine) (Heparin Sodium,Porcine 5,000 Unit/Ml Vial) 2,700 unit 40 unit/kg (2700 unit) IVPUSH PROTOCOL BOLUS PRN; Protocol PRN Reason: 40 unit/kg - Heparin Protocol Heparin Sodium (Porcine) (Heparin Sodium,Porcine 5,000 Unit/Ml Vial) 5,400 unit 80 unit/kg (5300 unit) IVPUSH PROTOCOL BOLUS PRN; Protocol PRN Reason: 80 unit/kg - Heparin Protocol Heparin Sodium/Sodium Chloride (Heparin Sodium,Porcine/1/2ns) 25,000 unit in 250 mls @ 0 mls/hr IVCONT .Q0M DANIEL; Protocol Last Admin: 04/19/25 03:37 Dose: 14 units/kg/hr, 9.39 mls/hr Sodium Chloride (Ns) 1,000 mls @ 50 mls/hr IVCONT .Q20H DANIEL Levothyroxine Sodium (Levothyroxine Sodium 88 Mcg Tablet) 88 mcg PO DAILY@0600 DANIEL Magnesium Hydroxide (Milk Of Magnesia 30 Ml Oral.Susp) 30 ml PO DAILY PRN PRN Reason: Constipation Melatonin (Melatonin 3 Mg Tablet) 6 mg PO BEDTIME PRN PRN Reason: Insomnia Ondansetron HCl (Ondansetron Hcl 4 Mg/2 Ml Vial) 4 mg IVPUSH Q8H PRN PRN Reason: Nausea and Vomiting Oxycodone HCl (Oxycodone Hcl Immed Release 5 Mg Tablet) 5 mg PO Q6H PRN PRN Reason: Pain, Severe (Pain Scale 7-10) Sodium Chloride (0.9 % Sodium Chloride Flush 3 Ml Syringe) 3 ml IVFLUSH QSHIFT DANIEL Tramadol HCl (Tramadol Hcl 50 Mg Tablet) 50 mg PO Q6H PRN PRN Reason: Pain, Moderate(Pain Scale 4-6) Home Medications ?Medication ?Instructions ?Recorded ?Confirmed ?Last Taken ?Type atorvastatin 40 mg tablet 40 mg PO DAILY 04/19/25 04/19/25 04/18/25 History hydrochlorothiazide 25 mg tablet 25 mg PO DAILY 04/19/25 04/19/25 04/18/25 History levothyroxine 88 mcg tablet 88 mcg PO DAILY 04/19/25 04/19/25 04/18/25 History lisinopril 10 mg tablet 10 mg PO DAILY 04/19/25 04/19/25 04/18/25 History Physical Exam Vital Signs and Narrative: Vital Signs: Last Vital Signs Temp 98.0 F 04/19/25 00:43 Pulse 76 04/19/25 06:09 Resp 11 L 04/19/25 06:09 BP 129/71 04/19/25 06:09 Pulse Ox 98 04/19/25 06:09 O2 Del Method Room Air 04/19/25 06:09 BMI result Body Mass Index 27.1 General: Alert, not oriented, no acute distress. [place] citizen speaking used interpretation, daughter provides history Resp: CTA bilaterally CVS: S1, S2, RRR GI: +BS, NT, no distention Skin: Warm, dry Neuro: Cranial nerves II-XII grossly intact bilaterally. Motor grossly intact bilaterally Extremities: No edema Psych: Appropriate affect Results Labs 04/19/25 02:37 04/19/25 06:36 Labs: Laboratory Results - last 24 hr 04/18/25 04/19/25 04/19/25 23:00 02:37 04:49 MCV 93.7 93.8 MCH 33.9 H 34.0 H MCHC 36.1 H 36.3 H RDW 11.7 11.8 Plt Count 152 L 127 L MPV 10.3 10.5 Immature Gran % (Auto) 1.2 H Neut % (Auto) 66.8 Lymph % (Auto) 19.2 L Garrard % (Auto) 10.4 Eos % (Auto) 2.1 Baso % (Auto) 0.3 Lymph # (Auto) 1.7 Garrard # (Auto) 0.9 Eos # (Auto) 0.2 Baso # (Auto) 0.0 Abs Immat Gran (auto) 0.10 H Absolute Neuts (auto) 5.8 Absolute Nucleated RBC 0.000 0.000 Nucleated RBC % (auto) 0.0 0.0 PT 11.3 INR 1.0 aPTT Heparin Protocol 26.8 L Anion Gap 13 Estim Creat Clear Calc 25.8 Estimated GFR 40 Random Glucose 86 Calcium 9.4 Magnesium 2.0 Total Bilirubin 0.6 Direct Bilirubin 0.2 AST 23 ALT 21 Alkaline Phosphatase 120 H Total Creatine Kinase 153 Troponin I High Sens 6.8 6.5 NT-Pro-B Natriuret Pep 193.8 Total Protein 6.8 Albumin 4.5 TSH 8.46 H Assessment and Plan (1) Ischemia of left lower extremity: Status: Acute (2) Non-sustained ventricular tachycardia: Status: Acute (3) Hyponatremia: Status: Acute Plan Patient is an 89-year-old male with a past medical history significant for hypothyroid, CAD, HLD, dementia, who presented to the ED due to discoloration of the left foot. The patient was brought in by his daughter due to a blue left foot which was reportedly called and coloration improved as he arrived to the ED. ischemia L foot, with high-grade stenosis and potential occlusions in bilateral anterior tibialis arteries on CT, improving - vascular consult - heparin drip - monitor PT/INR - pulse checks q.4h ectopy, nonsustained V-tach - metoprolol 12.5 mg daily per Cardiology recommendation - cardiology consult - monitor on tele - echo Hyponatremia - NS 50ml/HR - monitor BMP CKD, Cr at baseline - avoid nephrotoxins when possible Hypothyroid - TSH 8.46, free T4 pending - continue levothyroxine CAD - statin Med rec pending Full code VTE prophylaxis: Heparin Patient with ischemic left foot, requiring admission for at least 2 midnight stay for heparin drip, further evaluation and monitoring. Quality Stroke Does the patient have a stroke diagnosis?: No VTE Prior VTE?: No VTE Risk Level:: Medical - moderate - high VTE Device Contraindication: Treatment Not Indicated VTE Drug Contraindication: N/A - Med Ordered
[2025-04-19 06:56] LABS: Anion Gap 13 (12-20); Blood Urea Nitrogen 14 mg/dL (9-16); Calcium 8.8 mg/dL (8.4-10.2); Carbon Dioxide 21 mmol/L (22-29); Chloride 97 mmol/L (96-108); Creatinine Clr Calc Pharmacy 28.7; Estimated Glomerular Filt Rate 45; Potassium 4.6 mmol/L (3.3-5.1); Sodium 126 mmol/L (135-145)
--- NOTE | 2025-04-19 07:00 | CA_ITS ---
Transthoracic Echocardiogram Patient (Last, First, Middle): Benedict Ya, Gender: Male Date of : 1935 Age: 89 Procedure Date: 04/19/2025 Procedure Type: Transthoracic Echocardiogram Location: ER Height: 157.48 cm Weight: 66.68 kg BSA: 1.68 m2 Heart Rate: 50 bpm BP: 129 / 71 mmHg Pen Or Pencil Assembly Machine Operator: BLACK Referring MD: Roxanne Flores PA-C Engine House Helper: Sawyer Salomon MD Symptoms: NSVT Study Quality: Adequate w contrast ECG Rhythm: Bradycardia Conclusions: - 1. Technically limited study 2. Mildly reduced LV ejection fraction 45-50% with regional wall motion abnormality consistent with prior myocardial infarction 3. Possible early mild aortic stenosis 4. Mildly dilated ascending aorta Findings Procedure Information Contrast agent, definity, is being given per protocol without apparent complications. Left Ventricle Normal left ventricular cavity size. There is mildly increased left ventricular wall thickness. The left ventricular systolic function is mildly decreased. Spectral Doppler is indicative of an impaired relaxation filling pattern. Wall Motion Rest Echo Findings The mid inferolateral segment is hypokinetic. The inferoseptal wall, the basal inferior, mid inferior, and basal inferolateral segments are akinetic. All other scored wall segments showed normal motion. Right Ventricle The right ventricle was not well visualized. Atria The left atrium was not well visualized. Interatrial shunt cannot be excluded. The right atrium was not well visualized. Aortic Valve There is a doming trileaflet aortic valve. There is mild calcification of the aortic valve. There is mild thickening of the aortic valve. The peak aortic gradient is 9 mmHg.The mean gradient is 5 mmHg. The aortic valve area is 2.15 cm2. There is no aortic valve regurgitation. Mitral Valve The mitral valve was not well visualized. There is no mitral valve regurgitation. There is no mitral valve stenosis. Pulmonic Valve The pulmonic valve was not well visualized. Tricuspid Valve The right ventricular systolic pressure is not calculated. Indeterminate right atrial pressure. Great Vessels The aorta was not well visualized. The pulmonary artery was not well visualized. There is mild dilatation of the ascending aorta measuring 3.70 cm. Venous The inferior vena cava was not well visualized. Pericardium/Pleural The pericardium was not well visualized. Prior Study Comparison No prior study available for comparison. Measurements 2D Linear Measurements IVSd: 1.21 0.6-0.9/0.6-1.0 cm LVIDd: 4.21 3.9-5.3/4.2-5.9 cm LVIDd Index: 2.51 2.4-3.2/2.2-3.1 cm/m2 LVIDs: 3.01 2.0-3.6 cm LVPWd: 1.22 0.7-1.1 cm LA Diam: 4.00 2.7-3.8/3.0-4.0 cm LAIDs Index: 2.38 1.5-2.3 cm/m2 LV Mass: 226.86 67-162/88-224 g LV Mass Index: 135.04 43-95/49-115 g/m2 LVOT Diam: 2.20 3.0+(-)1.3 cm 2D Systolic Function EF 4C: 45.80 >55% EF 2C: 48.60 >55% EF BiP: 46.10 >55% Mitral Valve MV Pk E: 0.47 MV PK A: 0.98 MV Decel Time: 330.00 E/A: 0.50 E'Lateral: 5.55 E'Medial: 3.92 E/E' Med: 11.90 E/E' Lat: 8.40 PHT: 97.00 MVA PHT: 2.27 Decel [place]: 1.41 Aortic Valve AoV Pk Adán: 1.49 AoV Mn Adán: 0.96 AoV VTI: 0.33 AoV Pk Grad: 9.00 Aov Mn Grad: 5.00 ERIC Cont.VTI: 2.15 LVOT LVOT Pk Adán: 0.61 LVOT Mn Adán: 0.43 LVOT VTI: 0.19 LVOT Pk Grad: 2.00 LVOT Mn Grad: 1.00 LVOT Diam: 2.20 LVOT Area: 3.80 Diastolic Function MV Pk E: 0.47 MV Pk A: 0.98 E/A: 0.50 E'Medial: 3.92 E/E' Med: 11.90 E' Laterial: 5.55 E/E' Lat: 8.40 Right Ventricle TAPSE (mm): 27.20 Tricuspid Valve TR Pk Adán: 1.41 TR Pk Grad: 8.00 Great Vessels Aorta Sinus of Valsalva: 3.30 2.0-3.5 cm Ao Asc: 3.70 2.1-3.4 cm Pulmonary Valve PV Pk Adán: 0.72 Peak PV Grad: 2.00 Updated in Other Vendor System with Status of Final Sawyer Salomon MD electronically signed on 04/19/2025 1:30:29 PM with status of Final
[2025-04-19 07:05] LABS: Free T4 (Free Thyroxine) 1.12 ng/dL (0.71-1.85)
--- NOTE | 2025-04-19 08:17 | PHA.MEDREC ---
Addendum entered by Suha MacarioD 04/19/25 09:08: [facility] REVIEWED Original Note: Pharmacy Consult ? Medication Reconciliation Pharmacy has completed the medication reconciliation. Spoke to patient at bedside to confirm med list. Patient not longer taking Mirtazapine 30 mg. Patient last had his medications yesterday morning.
--- NOTE | 2025-04-19 08:44 | P.CONCA_ITS ---
History of Present Illness History of Present Illness Date of Service: 04/19/25 Requesting physician: Aly Pugh Consult reason: other (Nonsustained VT) Chief complaint: Foot Pain Narrative: I was consulted to see Benedict in cardiology consultation today as he was noted to have nonsustained VT on monitor. History was obtained from the patient patient's daughter both of them are poor historians. History also obtained from the chart. Patient is 89-year-old male brought to the emergency room as per the ED doctor because of discoloration of his left foot. When he came to the ED his discoloration resolved and however was felt that he would still might have vascular insufficiency and was decided to be admitted and vascular surgery was consulted after obtaining lower extremity CTA which is suggestive of occluded left anterior tibialis artery as well as distal occlusion of the right anterior tibialis artery. He has been started on IV heparin drip for concern for acute lower extremity the ischemia and as per the ED physicians know there has been gradually improvement in coloration of his left foot. However on the monitoring was noted to have frequent PVCs and short runs of nonsustained VT. Noted to be hyponatremic. Patient has no abnormalities of potassium and magnesium levels. Noted to have TATUM. On further inquiry patient's daughter says that many years ago he had stents put in but she is not able to tell whether it was in the heart or the carotid vessels. It seems like he had prior myocardial infarction by an EKGs which shows inferior Q-waves. Patient at current time denies any cardiac symptoms. At home as per the daughter his functional walking around the house and has no cardiac symptoms of chest pain. He has no current chest pain no shortness of breath no orthopnea no PND no palpitation or lightheadedness. He has not had any history of syncope. At home he is on atorvastatin, hydrochlorothiazide was lisinopril and levothyroxine. Review of Systems 2 Constitutional: Constitutional: Reports no additional constitutional complaints Eyes: Eyes: Reports no additional eye complaints Cardiovascular: Cardiovascular: Reports acrocyanosis and Reports cool extremities Respiratory: Respiratory: Reports no additional respiratory complaints Gastrointestinal: Gastrointestinal: Reports no additional gastrointestinal complaints Neurologic: Reports confusion Psychiatric: Psychiatric: Reports confusion Endocrine: Endocrine: Reports no additional endocrine complaints Hematologic/Lymphatic: Hematologic/Lymphatic: Reports no additional hematologic/lymphatic complaints [facility] Past Medical History Medical History Dementia Hypothyroid Non-sustained ventricular tachycardia Social History Social History Smoked in Last 30 Days: No Advance Directives: No Advance Directives Information Provided: Yes Do you have a plan to hurt others: No Plan Meds Allergies Allergy/AdvReac Type Severity Reaction Status Date / Time No Known Allergies Allergy Verified 04/18/25 22:16 Active Medications: Current Medications Acetaminophen (Acetaminophen 325 Mg Tablet) 650 mg PO Q6H PRN PRN Reason: Pain, Mild 1-3,fever,headache Atorvastatin Calcium (Atorvastatin Calcium 40 Mg Tablet) 40 mg PO DAILY [facility] Last Admin: 04/19/25 08:29 Dose: 40 mg Calcium Carbonate (Calcium Carbonate 750 Mg Tab.Chew) 750 mg PO Q4H PRN PRN Reason: Heartburn Heparin Sodium (Porcine) (Heparin Sodium,Porcine 5,000 Unit/Ml Vial) 2,700 unit 40 unit/kg (2700 unit) IVPUSH PROTOCOL BOLUS PRN; Protocol PRN Reason: 40 unit/kg - Heparin Protocol Heparin Sodium (Porcine) (Heparin Sodium,Porcine 5,000 Unit/Ml Vial) 5,400 unit 80 unit/kg (5300 unit) IVPUSH PROTOCOL BOLUS PRN; Protocol PRN Reason: 80 unit/kg - Heparin Protocol Heparin Sodium/Sodium Chloride (Heparin Sodium,Porcine/1/2ns) 25,000 unit in 250 mls @ 0 mls/hr IVCONT .Q0M [facility]; Protocol Last Admin: 04/19/25 03:37 Dose: 14 units/kg/hr, 9.39 mls/hr Sodium Chloride (Ns) 1,000 mls @ 50 mls/hr IVCONT .Q20H [facility] Last Admin: 04/19/25 08:29 Dose: 50 mls/hr Levothyroxine Sodium (Levothyroxine Sodium 100 Mcg Tablet) 100 mcg PO DAILY@0600 [facility] Lisinopril (Lisinopril 10 Mg Tablet) 10 mg PO DAILY [facility]; Protocol Magnesium Hydroxide (Milk Of Magnesia 30 Ml Oral.Susp) 30 ml PO DAILY PRN PRN Reason: Constipation Melatonin (Melatonin 3 Mg Tablet) 6 mg PO BEDTIME PRN PRN Reason: Insomnia Metoprolol Succinate (Metoprolol Succinate Er 12.5 Mg Halftab.Er.24h) 12.5 mg PO DAILY [facility]; Protocol Ondansetron HCl (Ondansetron Hcl 4 Mg/2 Ml Vial) 4 mg IVPUSH Q8H PRN PRN Reason: Nausea and Vomiting Oxycodone HCl (Oxycodone Hcl Immed Release 5 Mg Tablet) 5 mg PO Q6H PRN PRN Reason: Pain, Severe (Pain Scale 7-10) Sodium Chloride (0.9 % Sodium Chloride Flush 3 Ml Syringe) 3 ml IVFLUSH QSHIFT [facility] Last Admin: 04/19/25 08:34 Dose: Not Given Tramadol HCl (Tramadol Hcl 50 Mg Tablet) 50 mg PO Q6H PRN PRN Reason: Pain, Moderate(Pain Scale 4-6) Home Medications ?Medication ?Instructions ?Recorded ?Confirmed ?Last Taken ?Type atorvastatin 40 mg tablet 40 mg PO DAILY 04/19/2503/2804/18/25 History hydrochlorothiazide 25 mg tablet 25 mg PO DAILY 04/19/25 04/18/25 History levothyroxine 88 mcg tablet 88 mcg PO DAILY 04/19/25 1 04/18/25 History lisinopril 10 mg tablet 10 mg PO DAILY 04/19/2503/2804/18/25 History Physical Exam 2 Vital Signs: Vital Signs: Last Vital Signs Temp 98.0 F 04/19/25 00:43 Pulse 76 04/19/25 06:09 Resp 11 L 04/19/25 06:09 BP 129/71 04/19/25 06:09 Pulse Ox 98 04/19/25 06:09 O2 Del Method Room Air 04/19/25 06:09 BMI result Body Mass Index 27.1 Const: General: cooperative, comfortable, no acute distress, alert, awake, Physically active and confusion Nutritional Appearance: average body habitus Orientation/consciousness: confusion Limitations: no limitations HEENT: Head: Yes normocephalic and Yes atraumatic Neck: Neck: Yes trachea midline, Yes supple and Yes no JVD Resp: Effort & Inspection: normal respiratory effort Auscultation: clear to auscultation bilaterally Cardio: Jugular venous distension: no JVD Rate: regular rate Rhythm: a bnormal rhythm with ectopic beats Heart sounds: S1 normal heart sound present, S2 normal heart sound present, no click, no gallops and no murmurs Skin: General skin exam: no rashes or lesions noted Neuro: General: no focal motor deficits and confusion Extrem: General: Yes no clubbing, cyanosis or edema Objective Labs and Meds 04/19/25 02:37 04/19/25 06:36 Lab results: Laboratory Results - last 24 hr 04/18/25 04/19/25 04/19/25 23:00 02:37 04:49 WBC 8.7 6.9 RBC 4.46 L 3.88 L Hgb 15.1 13.2 L Hct 41.8 L 36.4 L MCV 93.7 93.8 MCH 33.9 H 34.0 H MCHC 36.1 H 36.3 H RDW 11.7 11.8 Plt Count 152 L 127 L MPV 10.3 10.5 Immature Gran % (Auto) 1.2 H Neut % (Auto) 66.8 Lymph % (Auto) 19.2 L [place] % (Auto) 10.4 Eos % (Auto) 2.1 Baso % (Auto) 0.3 Lymph # (Auto) 1.7 [place] # (Auto) 0.9 Eos # (Auto) 0.2 Baso # (Auto) 0.0 Abs Immat Gran (auto) 0.10 H Absolute Neuts (auto) 5.8 Absolute Nucleated RBC 0.000 0.000 Nucleated RBC % (auto) 0.0 0.0 PT 11.3 INR 1.0 aPTT Heparin Protocol 26.8 L Sodium 124 L Potassium 4.2 Chloride 90 L Carbon Dioxide 25 Anion Gap 13 BUN 16 Creatinine 1.63 H Estim Creat Clear Calc 25.8 Estimated GFR 40 Random Glucose 86 Calcium 9.4 Magnesium 2.0 Total Bilirubin 0.6 Direct Bilirubin 0.2 AST 23 ALT 21 Alkaline Phosphatase 120 H Total Creatine Kinase 153 Troponin I High Sens 6.8 6.5 NT-Pro-B Natriuret Pep 193.8 Total Protein 6.8 Albumin 4.5 TSH 8.46 H Free T4 1.12 04/19/25 06:36 WBC RBC Hgb Hct MCV MCH MCHC RDW Plt Count MPV Immature Gran % (Auto) Neut % (Auto) Lymph % (Auto) [place] % (Auto) Eos % (Auto) Baso % (Auto) Lymph # (Auto) [place] # (Auto) Eos # (Auto) Baso # (Auto) Abs Immat Gran (auto) Absolute Neuts (auto) Absolute Nucleated RBC Nucleated RBC % (auto) PT INR aPTT Heparin Protocol Sodium 126 L Potassium 4.6 Chloride 97 Carbon Dioxide 21 L Anion Gap 13 BUN 14 Creatinine 1.47 H Estim Creat Clear Calc 28.7 Estimated GFR 45 Random Glucose 96 Calcium 8.8 D Magnesium Total Bilirubin Direct Bilirubin AST ALT Alkaline Phosphatase Total Creatine Kinase Troponin I High Sens NT-Pro-B Natriuret Pep Total Protein Albumin TSH Free T4 Assessment and Plan (1) Non-sustained ventricular tachycardia: Status: Acute Plan Frequent PVCs as well as nonsustained ventricular tachycardia in this elderly gentleman with looks like he has had diffuse vascular disease with possibly prior myocardial infarction of the inferior inferolateral wall. Will need an echocardiogram. He is not having any active cardiac symptoms. His electrolytes are within normal limits. I would switch his hydrochlorothiazide to metoprolol therapy for reducing his cardiac excitability. He is also hypothyroid which might be contributing to his baseline bradycardia. Please continue to corrective hypothyroidism. No other active treatment is needed as patient in his asymptomatic. Further treatment based on the findings of echo report. 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 Will follow with you Procedures Date of Service Date of Service: 04/19/25
--- NOTE | 2025-04-19 09:58 | MHC.CM.PN ---
Attempted to meet with patient in regards to discharge planning. Echo currently being performed. Will attempt to meet again. Continue to monitor for d/c needs.
[2025-04-19 10:27] LABS: PTT Heparin Drip 99.0 SEC (53-77.9)
[2025-04-19 10:30] LABS: Osmolality, Serum 263 mosm/kg (281-305)
--- NOTE | 2025-04-19 10:42 | PM.CNGS ---
History of Present Illness Consult details Consult date: 04/19/25 Reason for consult: ischemic leg Narrative: 89-year-old gentleman with a history significant for dementia presented to the emergency room yesterday evening with concerns of ischemia of the left foot. It appeared discolored per the emergency room team and he subsequently underwent CT angiogram. Upon re-evaluation by them the color had improved. He had been started on a heparin drip and was subsequently admitted for evaluation. Review of Systems Review of Systems: Yes all other systems are reviewed and are negative Constitutional: Constitutional: Reports no additional constitutional complaints ENT: Reports Normal hearing present Cardiovascular: Cardiovascular: Denies chest pain, Denies chest pain at rest, Denies chest pain with activity and Denies pedal edema Respiratory: Respiratory: Denies cough Gastrointestinal: Gastrointestinal: Denies abdominal pain Musculoskeletal: Musculoskeletal: Denies abnormal gait, Denies muscle cramps and Denies radiating pain into limb Integumentary/Breasts: Skin/Breast: Denies skin ulcer and Denies wounds Neurologic: Reports Normal hearing present and Denies abnormal gait Psychiatric: Psychiatric: Reports no additional psychiatric complaints [facility] Past Medical History Medical History Dementia Hypothyroid Non-sustained ventricular tachycardia Social History Social History Household Members: Children Household Members Other:: daughter Housing: Apartment Do you presently have visiting nurse or other home services: Yes (program [id number]) Patient Tobacco Use Status: Never used Tobacco Smoked in Last 30 Days: No Advance Directives: No Advance Directives Information Provided: Yes Do you have a plan to hurt others: No Plan Recently lost weight without trying: No Meds Allergies Allergy/AdvReac Type Severity Reaction Status Date / Time No Known Allergies Allergy Verified 04/18/25 22:16 Active Medications: Current Medications Acetaminophen (Acetaminophen 325 Mg Tablet) 650 mg PO Q6H PRN PRN Reason: Pain, Mild 1-3,fever,headache Aspirin (Aspirin 81 Mg Tab.Chew) 81 mg PO DAILY [facility] Atorvastatin Calcium (Atorvastatin Calcium 40 Mg Tablet) 40 mg PO DAILY [facility] Last Admin: 04/19/25 08:29 Dose: 40 mg Calcium Carbonate (Calcium Carbonate 750 Mg Tab.Chew) 750 mg PO Q4H PRN PRN Reason: Heartburn Enoxaparin Sodium (Enoxaparin Sodium 30 Mg/0.3 Ml Syringe) 30 mg SUBCUT Q24H [facility] Sodium Chloride (Ns) 1,000 mls @ 50 mls/hr IVCONT .Q20H [facility] Last Admin: 04/19/25 08:29 Dose: 50 mls/hr Levothyroxine Sodium (Levothyroxine Sodium 100 Mcg Tablet) 100 mcg PO DAILY@0600 [facility] Lisinopril (Lisinopril 10 Mg Tablet) 10 mg PO DAILY [facility]; Protocol Magnesium Hydroxide (Milk Of Magnesia 30 Ml Oral.Susp) 30 ml PO DAILY PRN PRN Reason: Constipation Melatonin (Melatonin 3 Mg Tablet) 6 mg PO BEDTIME PRN PRN Reason: Insomnia Metoprolol Succinate (Metoprolol Succinate Er 12.5 Mg Halftab.Er.24h) 12.5 mg PO DAILY [facility]; Protocol Ondansetron HCl (Ondansetron Hcl 4 Mg/2 Ml Vial) 4 mg IVPUSH Q8H PRN PRN Reason: Nausea and Vomiting Oxycodone HCl (Oxycodone Hcl Immed Release 5 Mg Tablet) 5 mg PO Q6H PRN PRN Reason: Pain, Severe (Pain Scale 7-10) Sodium Chloride (0.9 % Sodium Chloride Flush 3 Ml Syringe) 3 ml IVFLUSH QSHIFT [facility] Last Admin: 04/19/25 08:34 Dose: Not Given Tramadol HCl (Tramadol Hcl 50 Mg Tablet) 50 mg PO Q6H PRN PRN Reason: Pain, Moderate(Pain Scale 4-6) Home Medications ?Medication ?Instructions ?Recorded ?Confirmed ?Last Taken ?Type atorvastatin 40 mg tablet 40 mg PO DAILY 04/19/25 04/19/25 04/18/25 History hydrochlorothiazide 25 mg tablet 25 mg PO DAILY 04/19/25 04/19/25 04/18/25 History levothyroxine 88 mcg tablet 88 mcg PO DAILY 04/19/25 04/19/25 04/18/25 History lisinopril 10 mg tablet 10 mg PO DAILY 04/19/25 04/19/25 04/18/25 History Physical Exam Vital Signs: Vital Signs: Last Vital Signs Temp 98.0 F 04/19/25 00:43 Pulse 76 04/19/25 06:09 Resp 11 L 04/19/25 06:09 BP 129/71 04/19/25 06:09 Pulse Ox 98 04/19/25 06:09 O2 Del Method Room Air 04/19/25 06:09 BMI result Body Mass Index 27.1 Const: General: cooperative, healthy appearing and comfortable Orientation/consciousness: oriented to person, oriented to place and oriented to time HEENT: Head: Yes normal to inspection Neck: Neck: Yes normal visual inspection Carotids: no bruits Chest: Chest palpation & inspection: normal inspection of the chest Resp: Effort & Inspection: normal respiratory effort and able to speak in complete sentences Auscultation: clear to auscultation bilaterally, no crackles, no rales, no rhonchi and no wheezes Cardio: Other: Bilateral DP signals Rate: regular rate Rhythm: regular rhythm Heart sounds: S1 normal heart sound present and S2 normal heart sound present Bruits: no carotid bruits GI: Inspection: Yes normal to inspection Skin: Wounds: no wounds Hair: normal Neuro: General: oriented to person, oriented to place and oriented to time Cranial nerves: Yes CN's II-XII intact bilaterally and Yes Normal hearing present Cognition (Neuro): normal cognition Motor exam (neuro): 5/5 motor strength present throughout Extrem: Other: Lower extremities both have motor and sensation intact General: No clubbing, No cyanosis and No edema Psych: Appearance: grossly normal Mental Status: mental status grossly normal Speech and movement: Normal speech and movement present Results Labs 04/19/25 02:37 04/19/25 06:36 Labs: Abnormal lab results 04/18/25 04/19/25 04/19/25 Range/Units 23:00 02:37 06:36 RBC 4.46 L 3.88 L (4.60-5.80) X10*6/uL Hgb 13.2 L (14.0-18.0) g/dl Hct 41.8 L 36.4 L (42.0-52.0) % MCH 33.9 H 34.0 H (27.0-33.0) pg MCHC 36.1 H 36.3 H (31.0-36.0) g/dl Plt Count 152 L 127 L (160-400) X10*3/uL Immature Gran % (Auto) 1.2 H (0.0-0.4) % Lymph % (Auto) 19.2 L (20-40) % Abs Immat Gran (auto) 0.10 H (0.00-0.03) X10*3/uL aPTT Heparin Protocol 26.8 L (53-77.9) SEC Sodium 124 L 126 L (135-145) mmol/L Chloride 90 L (96-108) mmol/L Carbon Dioxide 21 L (22-29) mmol/L Creatinine 1.63 H 1.47 H (0.5-1.4) mg/dL Osmolality (281-305) mosm/kg Alkaline Phosphatase 120 H (39-117) U/L TSH 8.46 H (0.32-4.0) uIU/mL 04/19/25 Range/Units 10:10 RBC (4.60-5.80) X10*6/uL Hgb (14.0-18.0) g/dl Hct (42.0-52.0) % MCH (27.0-33.0) pg MCHC (31.0-36.0) g/dl Plt Count (160-400) X10*3/uL Immature Gran % (Auto) (0.0-0.4) % Lymph % (Auto) (20-40) % Abs Immat Gran (auto) (0.00-0.03) X10*3/uL aPTT Heparin Protocol 99.0 H D (53-77.9) SEC Sodium (135-145) mmol/L Chloride (96-108) mmol/L Carbon Dioxide (22-29) mmol/L Creatinine (0.5-1.4) mg/dL Osmolality 263 L (281-305) mosm/kg Alkaline Phosphatase (39-117) U/L TSH (0.32-4.0) uIU/mL Short CBC 04/18/25 04/19/25 Range/Units 23:00 02:37 WBC 8.7 6.9 (4.8-10.8) X10*3/uL Hgb 15.1 13.2 L (14.0-18.0) g/dl Hct 41.8 L 36.4 L (42.0-52.0) % Plt Count 152 L 127 L (160-400) X10*3/uL BMP 04/18/25 04/19/25 23:00 06:36 Sodium 124 L 126 L Potassium 4.2 4.6 Chloride 90 L 97 Carbon Dioxide 25 21 L BUN 16 14 Creatinine 1.63 H 1.47 H Calcium 9.4 8.8 D Cardiac Enzymes 04/18/25 Range/Units 23:00 Total Creatine Kinase 153 (38-174) U/L Liver Function 04/18/25 Range/Units 23:00 Total Bilirubin 0.6 (0.0-1.0) mg/dL Direct Bilirubin 0.2 (0.0-0.5) mg/dL AST 23 (5-37) U/L ALT 21 (0-40) U/L Alkaline Phosphatase 120 H (39-117) U/L Albumin 4.5 (3.5-5.0) g/dL All other labs normal. Imaging Additional studies: CT angiogram reviewed. Assessment and Plan (1) Ischemia of left lower extremity: Status: Acute Plan In short this all appears to be chronic PA D. At the time of my evaluation lower extremities had normal color with normal capillary refill. Motor and sensation was intact. He is being admitted for concerns of AFib and hyponatremia. He will be worked up by the medical team. In terms of his vascular disease at the current time due to his overall age and comorbidities would manage this as conservatively as possible. Both lower extremities are warm and viable. Would recommend aspirin and continuation of the statin which he is already on may even benefit from a high-intensity statin based on the 2019 ACC and aha guidelines. Once on a high-intensity statin would monitor LFTs and renal function. Safe to discontinue heparin from a peripheral vascular standpoint. Continued medical management and if discharged can see us as an outpatient. Thank you for allowing us to assist in his care. If there are any questions or concerns please do not hesitate to contact us. Please note a total of 65 minutes was required for the care of this patient between discussion with the emergency room, discussion with the hospitalist team, review of films, and direct patient and family contact. Total time managing care of this patient today: 65 minutes. Procedures Date of Service Date of Service: 04/19/25
--- NOTE | 2025-04-19 11:20 | HO.NURTONUR ---
89 yr male admitted for ischemia to LLE, Ventricular Tachycardia, and Hyponatremia. Pt comes to ED for c/o LLE swelling. Noted to have good CMS, (+) cap refill, but pedal pulses unpalpable--stenosis of tibial artery noted. A&Ox3 Maori speaking. VSS, afebrile. Heparin dripped d/c'd this AM. 20g LAC NS running at 50ml/hr Bedside urinal. Echo completed today. Family at bedside.
--- NOTE | 2025-04-19 14:39 | P.PNIM_ITS ---
Subjective Subjective Date of Service: 04/19/25 Interval History: This history was taken in Hebrew from the patient. Feet both cool but not painful Frequent PVCs, NSVT No chest pain or lightheadedness No dyspnea Review of Systems Review of Systems: Yes all other systems are reviewed and are negative Physical Exam 2 Vital Signs: Vital Signs: Last Vital Signs Temp 98.4 F 04/19/25 10:59 Pulse 52 04/19/25 10:59 Resp 17 04/19/25 10:59 BP 127/64 04/19/25 11:07 Pulse Ox 99 04/19/25 10:59 O2 Del Method Room Air 04/19/25 10:59 BMI result Body Mass Index 27.1 Gen: in no acute distress HEENT: sclera anicteric, moist mucus membranes Neck: supple Lungs: clear to auscultation bilaterally Heart: regular rate and rhythm, no murmurs Abd: soft, non-tender, non-distended Ext: no edema Skin: warm/well-perfused Neuro: alert and oriented x3, no focal findings Psych: appropriate affect Objective Data Active Medications Acetaminophen (Acetaminophen 325 Mg Tablet) 650 mg PO Q6H PRN PRN Reason: Pain, Mild 1-3,fever,headache Aspirin (Aspirin 81 Mg Tab.Chew) 81 mg PO DAILY [facility] Last Admin: 04/19/25 11:07 Dose: 81 mg Documented By: DALI Atorvastatin Calcium (Atorvastatin Calcium 40 Mg Tablet) 40 mg PO DAILY [facility] Last Admin: 04/19/25 08:29 Dose: 40 mg Documented By: NO Calcium Carbonate (Calcium Carbonate 750 Mg Tab.Chew) 750 mg PO Q4H PRN PRN Reason: Heartburn Enoxaparin Sodium (Enoxaparin Sodium 30 Mg/0.3 Ml Syringe) 30 mg SUBCUT Q24H [facility] Last Admin: 04/19/25 11:07 Dose: 30 mg Documented By: DALI Sodium Chloride (Ns) 1,000 mls @ 50 mls/hr IVCONT .Q20H [facility] Last Admin: 04/19/25 08:29 Dose: 50 mls/hr Documented By: NO Levothyroxine Sodium (Levothyroxine Sodium 100 Mcg Tablet) 100 mcg PO DAILY@0600 [facility] Lisinopril (Lisinopril 10 Mg Tablet) 10 mg PO DAILY [facility]; Protocol Last Admin: 04/19/25 11:07 Dose: 10 mg Documented By: DALI Magnesium Hydroxide (Milk Of Magnesia 30 Ml Oral.Susp) 30 ml PO DAILY PRN PRN Reason: Constipation Melatonin (Melatonin 3 Mg Tablet) 6 mg PO BEDTIME PRN PRN Reason: Insomnia Metoprolol Succinate (Metoprolol Succinate Er 12.5 Mg Halftab.Er.24h) 12.5 mg PO DAILY [facility]; Protocol Ondansetron HCl (Ondansetron Hcl 4 Mg/2 Ml Vial) 4 mg IVPUSH Q8H PRN PRN Reason: Nausea and Vomiting Oxycodone HCl (Oxycodone Hcl Immed Release 5 Mg Tablet) 5 mg PO Q6H PRN PRN Reason: Pain, Severe (Pain Scale 7-10) Sodium Chloride (0.9 % Sodium Chloride Flush 3 Ml Syringe) 3 ml IVFLUSH QSHIFT [facility] Last Admin: 04/19/25 08:34 Dose: Not Given Documented By: NO Non-Admin Reason: IV Running Tramadol HCl (Tramadol Hcl 50 Mg Tablet) 50 mg PO Q6H PRN PRN Reason: Pain, Moderate(Pain Scale 4-6) Labs 04/19/25 02:37 04/19/25 06:36 Labs: Laboratory Results - last 24 hr 04/18/25 04/19/25 04/19/25 23:00 02:37 04:49 MCV 93.7 93.8 MCH 33.9 H 34.0 H MCHC 36.1 H 36.3 H RDW 11.7 11.8 Plt Count 152 L 127 L MPV 10.3 10.5 Immature Gran % (Auto) 1.2 H Neut % (Auto) 66.8 Lymph % (Auto) 19.2 L Alfalfa % (Auto) 10.4 Eos % (Auto) 2.1 Baso % (Auto) 0.3 Lymph # (Auto) 1.7 Alfalfa # (Auto) 0.9 Eos # (Auto) 0.2 Baso # (Auto) 0.0 Abs Immat Gran (auto) 0.10 H Absolute Neuts (auto) 5.8 Absolute Nucleated RBC 0.000 0.000 Nucleated RBC % (auto) 0.0 0.0 PT 11.3 INR 1.0 aPTT Heparin Protocol 26.8 L Anion Gap 13 Estim Creat Clear Calc 25.8 Estimated GFR 40 Random Glucose 86 Osmolality Calcium 9.4 Magnesium 2.0 Total Bilirubin 0.6 Direct Bilirubin 0.2 AST 23 ALT 21 Alkaline Phosphatase 120 H Total Creatine Kinase 153 Troponin I High Sens 6.8 6.5 NT-Pro-B Natriuret Pep 193.8 Total Protein 6.8 Albumin 4.5 TSH 8.46 H Free T4 1.12 04/19/25 04/19/25 06:36 10:10 MCV MCH MCHC RDW Plt Count MPV Immature Gran % (Auto) Neut % (Auto) Lymph % (Auto) Alfalfa % (Auto) Eos % (Auto) Baso % (Auto) Lymph # (Auto) Alfalfa # (Auto) Eos # (Auto) Baso # (Auto) Abs Immat Gran (auto) Absolute Neuts (auto) Absolute Nucleated RBC Nucleated RBC % (auto) PT INR aPTT Heparin Protocol 99.0 H D Anion Gap 13 Estim Creat Clear Calc 28.7 Estimated GFR 45 Random Glucose 96 Osmolality 263 L Calcium 8.8 D Magnesium Total Bilirubin Direct Bilirubin AST ALT Alkaline Phosphatase Total Creatine Kinase Troponin I High Sens NT-Pro-B Natriuret Pep Total Protein Albumin TSH Free T4 Assessment and Plan (1) Non-sustained ventricular tachycardia: Status: Acute Assessment and Plan: d1, 89yo M with CAD, HLD, dementia, hypothyroidism brought in for discoloration of L foot which has improved since presentation LLE ischemia - per Vascular Surgery, chronic PAD; currently normal color and normal capillary refill and sensation. 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 Quality Stroke Does the patient have a stroke diagnosis?: No VTE Prior VTE?: No VTE Risk Level:: Medical - moderate - high VTE Device Contraindication: Treatment Not Indicated VTE Drug Contraindication: N/A - Med Ordered
[2025-04-19] MEDS: guaiFENesin 100 MG/5 ML 5 ML LIQUID PO (23:50)
[2025-04-20 03:32] VITALS: BP 147/73; PULSE 55; RESP 16; TEMP 36.1; O2SAT 99
[2025-04-20 07:14] LABS: Anion Gap 13 (12-20); Blood Urea Nitrogen 12 mg/dL (9-16); Calcium 8.9 mg/dL (8.4-10.2); Carbon Dioxide 22 mmol/L (22-29); Chloride 99 mmol/L (96-108); Creatinine Clr Calc Pharmacy 25.5; Estimated Glomerular Filt Rate 39; Potassium 5.2 mmol/L (3.3-5.1); Sodium 129 mmol/L (135-145)
--- NOTE | 2025-04-20 10:01 | MHC.CM.PN ---
Addendum entered by Radha Acuna 04/20/25 10:16: CM met with Patient and Daughter with the assist of a Piano Assembler. Original Note: CM met with Patient and his Daughter/Parris at bedside and addressed IMM with them; original was given to Daughter and a copy has been placed on the chart. Patient lives in an apartment and has QD global manager and Daughter stays with him at night. Home/resume said services and new VNA is Patient/Daughter's goal and CM has initiated and will follow for dc planning. PCP is Dr. Leonor Deleon and Daughter will transport at dc.
--- NOTE | 2025-04-20 11:32 | HO.PM.IMPN ---
Subjective Subjective Date of Service: 04/20/25 Interval History: no pain or discoloration of feet no chest pain no further NSVT This history was taken in Persian from the patient. Review of Systems Review of Systems: Yes all other systems are reviewed and are negative Physical Exam Vital Signs: Vital Signs: Last Vital Signs Temp 97 F 04/20/25 03:32 Pulse 55 04/20/25 03:32 Resp 16 04/20/25 03:32 BP 147/73 H 04/20/25 03:32 Pulse Ox 99 04/20/25 03:32 O2 Del Method Room Air 04/20/25 03:32 BMI result Body Mass Index 27.1 Gen: in no acute distress HEENT: sclera anicteric, moist mucus membranes Neck: supple Lungs: clear to auscultation bilaterally Heart: regular, slow, no murmurs Abd: soft, non-tender, non-distended Ext: no edema Skin: warm/well-perfused Neuro: alert and oriented x3, no focal findings Psych: appropriate affect Objective Data Active Medications Acetaminophen (Acetaminophen 325 Mg Tablet) 650 mg PO Q6H PRN PRN Reason: Pain, Mild 1-3,fever,headache Aspirin (Aspirin 81 Mg Tab.Chew) 81 mg PO DAILY [facility] Last Admin: 04/19/25 11:07 Dose: 81 mg Documented By: DALI Atorvastatin Calcium (Atorvastatin Calcium 40 Mg Tablet) 40 mg PO DAILY [facility] Last Admin: 04/19/25 08:29 Dose: 40 mg Documented By: NO Calcium Carbonate (Calcium Carbonate 750 Mg Tab.Chew) 750 mg PO Q4H PRN PRN Reason: Heartburn Enoxaparin Sodium (Enoxaparin Sodium 30 Mg/0.3 Ml Syringe) 30 mg SUBCUT Q24H [facility] Last Admin: 04/19/25 11:07 Dose: 30 mg Documented By: DALI Guaifenesin (Guaifenesin 100 Mg/5 Ml 5 Ml Liquid) 5 ml PO Q6H PRN PRN Reason: Cough Last Admin: 04/19/25 23:50 Dose: 5 ml Documented By: JEROME Sodium Chloride (Ns) 1,000 mls @ 50 mls/hr IVCONT .Q20H [facility] Last Admin: 04/20/25 06:22 Dose: Not Given Documented By: JEROME Non-Admin Reason: IV Running Levothyroxine Sodium (Levothyroxine Sodium 100 Mcg Tablet) 100 mcg PO DAILY@0600 [facility] Last Admin: 04/20/25 06:24 Dose: 100 mcg Documented By: JEROME Lisinopril (Lisinopril 10 Mg Tablet) 10 mg PO DAILY [facility]; Protocol Last Admin: 04/19/25 11:07 Dose: 10 mg Documented By: DALI Magnesium Hydroxide (Milk Of Magnesia 30 Ml Oral.Susp) 30 ml PO DAILY PRN PRN Reason: Constipation Melatonin (Melatonin 3 Mg Tablet) 6 mg PO BEDTIME PRN PRN Reason: Insomnia Last Admin: 04/19/25 23:50 Dose: 6 mg Documented By: JEROME Metoprolol Succinate (Metoprolol Succinate Er 12.5 Mg Halftab.Er.24h) 12.5 mg PO DAILY [facility]; Protocol Ondansetron HCl (Ondansetron Hcl 4 Mg/2 Ml Vial) 4 mg IVPUSH Q8H PRN PRN Reason: Nausea and Vomiting Oxycodone HCl (Oxycodone Hcl Immed Release 5 Mg Tablet) 5 mg PO Q6H PRN PRN Reason: Pain, Severe (Pain Scale 7-10) Sodium Chloride (0.9 % Sodium Chloride Flush 3 Ml Syringe) 3 ml IVFLUSH QSHIFT [facility] Last Admin: 04/19/25 21:35 Dose: Not Given Documented By: JEROME Non-Admin Reason: IV Running Tramadol HCl (Tramadol Hcl 50 Mg Tablet) 50 mg PO Q6H PRN PRN Reason: Pain, Moderate(Pain Scale 4-6) Labs 04/19/25 02:37 04/20/25 06:35 Labs: Laboratory Results - last 24 hr 04/20/25 06:35 Anion Gap 13 Estim Creat Clear Calc 25.5 Estimated GFR 39 Random Glucose 86 Calcium 8.9 Assessment and Plan (1) Non-sustained ventricular tachycardia: Status: Acute Assessment and Plan: d2, 89yo M with CAD, HLD, dementia, hypothyroidism brought in for discoloration of L foot which has improved since presentation LLE ischemia - per Vascular Surgery, chronic PAD; currently normal color and normal capillary refill and sensation. ASA + high-intensity statin; does not need heparin gtt; outpt follow-up in office NSVT/PVCs - started on metoprolol succinate, Cardiology following, TTE 04/19: 1. Technically limited study 2. Mildly reduced LV ejection fraction 45-50% with regional wall motion abnormality consistent with prior myocardial infarction 3. Possible early mild aortic stenosis 4. 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 Quality Stroke Does the patient have a stroke diagnosis?: No VTE Prior VTE?: No VTE Risk Level:: Medical - moderate - high VTE Device Contraindication: Treatment Not Indicated VTE Drug Contraindication: N/A - Med Ordered
[2025-04-20 12:00] VITALS: BP 158/84; PULSE 54; RESP 20; TEMP 36.3; O2SAT 97
--- NOTE | 2025-04-20 12:16 | P.PNCA_ITS ---
Subjective Subjective Date of Service: 04/20/25 Principal diagnosis: Nonsustained VT, CAD, PVD Interval history: Patient has no ventricular arrhythmias overnight. Heart rate is in the low to upper 50s. No symptoms related to it. Daughter at bedside is concerned about cough which she has developed since yesterday. Has been seen by vascular surgery management is medical. Currently on IV heparin drip. Echocardiogram shows mildly reduced LV EF of 45-50% with regional wall motion abnormality. Review of Systems Review of Systems Yes Unobtainable due to mental status Reports confusion Psychiatric: Reports confusion Physical Exam Vital Signs: Last Vital Signs Temp 97 F 04/20/25 03:32 Pulse 55 04/20/25 03:32 Resp 16 04/20/25 03:32 BP 147/73 H 04/20/25 03:32 Pulse Ox 99 04/20/25 03:32 O2 Del Method Room Air 04/20/25 03:32 BMI result Body Mass Index 27.1 Const General: cooperative, comfortable, no acute distress, alert, awake, Physically active and confusion Nutritional Appearance: average body habitus Orientation/consciousness: confusion Limitations: no limitations HEENT Head: Yes normocephalic and Yes atraumatic Neck Neck: Yes trachea midline, Yes supple and Yes no JVD Resp Effort & Inspection: normal respiratory effort Auscultation: crackles Cardio Jugular venous distension: no JVD Rate: regular rate Rhythm: abnormal rhythm with ectopic beats Heart sounds: S1 normal heart sound present, S2 normal heart sound present, no click, no gallops and no murmurs Skin General skin exam: no rashes or lesions noted Neuro General: no focal motor deficits and confusion Extrem General: Yes no clubbing, cyanosis or edema Objective Labs and Meds 04/19/25 02:37 04/20/25 06:35 Lab results: Laboratory Results - last 24 hr 04/20/25 06:35 Sodium 129 L Potassium 5.2 H Chloride 99 Carbon Dioxide 22 Anion Gap 13 BUN 12 Creatinine 1.65 H Estim Creat Clear Calc 25.5 Estimated GFR 39 Random Glucose 86 Calcium 8.9 Imaging Radiologist's impression: Impressions Venous Duplex 04/19/25 15:21 IMPRESSION: No acute deep venous thrombosis interrogated veins both lower extremities. Negative for DVT. Electronically signed by: Khoa Mora MD 04/19/2025 03:51 PM EDT RP Progress Note: A&P Assessment and plan (1) Non-sustained ventricular tachycardia: Status: Acute Assessment and Plan: Nonsustained ventricular tachycardia most likely due to prior myocardial infarction although ejection fraction in his mildly depressed. This has resolved now. Would continue with low-dose metoprolol therapy. Likelihood of having recurrent ventricular arrhythmias given his underlying coronary artery disease although management would be medical. If he continues to have ventricular arrhythmias can consider amiodarone therapy although this could also lead to bradycardia. (2) CAD (coronary artery disease): Status: Acute Assessment and Plan: CAD with prior IN on the echocardiogram with mildly reduced LV ejection fraction. Having increased cough and crackles. Consider chest x-ray. Not really short of breath. Could be other day basis. Further treatment based on the findings. Out of bed to chair in his incentive spirometry should be considered. He is already on lisinopril therapy and currently on metoprolol therapy for neurohormonal modulation. Continue aspirin as well as high- intensity statin therapy. Consider low-dose oral anticoagulation therapy with Xarelto to reduce limb loss events. Will sign of the case. Thank you for allowing me to partake in his care Time Spent With Patient Time: Total time managing care of this patient today ____ minutes. Progress Note: Quality Stroke Does the patient have a stroke diagnosis?: No Procedures Date of Service Date of Service: 04/20/25
[2025-04-20 12:18] VITALS: BP 158/84
[2025-04-20] MEDS: 0.9 % Sodium Chloride Flush 3 ML SYRINGE IVFLUSH (12:19)
[2025-04-20 12:23] VITALS: BP 158/84; PULSE 54
[2025-04-20 16:00] VITALS: BP 122/58; PULSE 50; RESP 18; TEMP 36.5; O2SAT 97
[2025-04-20 19:42] VITALS: BP 148/70; PULSE 51; RESP 16; TEMP 36.8; O2SAT 99
[2025-04-21] VITALS: BP 146/74; PULSE 51; RESP 20; TEMP 36.2; O2SAT 98
[2025-04-21 04:00] VITALS: BP 144/71; PULSE 57; RESP 20; TEMP 36.3; O2SAT 95
[2025-04-21 08:00] VITALS: BP 139/74; PULSE 52; RESP 20; TEMP 36.2; O2SAT 98
[2025-04-21 08:08] LABS: Anion Gap 13 (12-20); Blood Urea Nitrogen 14 mg/dL (9-16); Calcium 9.2 mg/dL (8.4-10.2); Carbon Dioxide 26 mmol/L (22-29); Chloride 99 mmol/L (96-108); Creatinine Clr Calc Pharmacy 27.4; Estimated Glomerular Filt Rate 43; Potassium 4.9 mmol/L (3.3-5.1); Sodium 133 mmol/L (135-145)
[2025-04-21] MEDS: Metoprolol Succinate ER 12.5 MG HALFTAB.ER.24H PO (10:44)
[2025-04-21 12:00] VITALS: BP 139/68; PULSE 65; RESP 20; TEMP 36.7; O2SAT 98
--- NOTE | 2025-04-21 13:04 | P.DS_ITS ---
DS: Providers Provider Date of Service: 04/21/25 Date of admission: 04/19/25 04:23 Date of discharge: 04/21/25 Primary care physician: Leonor Deleon PA-C Consults: 04/19/25 06:13 Consult to Cardiology Routine Consulting Provider: [facility] Reason for consultation: bradycardia Has provider been notified: Yes 04/19/25 06:22 Consult to Vascular Surgery Routine Consulting Provider: [facility] Reason for consultation: ?L foot ischemia, improved. see CT Has provider been notified: Yes DS: Diagnosis Discharge Diagnosis (1) Non-sustained ventricular tachycardia: Status: Acute (2) CAD (coronary artery disease): Status: Acute DS: Summary Hospital Course Hospital Course: 89-year-old male with a past medical history significant for hypothyroid, CAD, HLD, dementia, who presented to the ED due to discoloration of the left foot. The patient was brought in by his daughter due to a blue left foot which was reportedly called and coloration improved as he arrived to the ED. The patient has been seeing his PCP over the past week and has had adjustments twice due to pedal edema, he was started on hydrochlorothiazide. Pulses were not present bilaterally upon arrival over capillary refill normal. The patient denies any pain in his completely asymptomatic. He is unable to provide a history due to his dementia. In the ED he was also found to be bradycardic, concern for AFib however not seen on telemetry or EKG. He had very frequent short bursts of ectopy. Optical Engineering Technician was consulted in the ED who suggested metoprolol and an echocardiogram. Dr. Jones is aware of the patient and suggested heparin drip and admission with vascular consultation. Of note patient was also found to be hyponatremic. Hospital Course Admitted to telemetry where monitor demonstrated nonsustained VT. Seen in consultation by Cardiology; 2D echo ordered and demonstrated EF of 45-50%. With wall motion abnormality consistent with past VT. Metoprolol was added however Cardiology felt this was the extent of treatment as patient was asymptomatic. Hydrochlorothiazide was DC in his sodium continues to rise back to baseline. At this point in time he is medically acceptable to be discharged and follow up with Cardiology in the office and PCP as scheduled Time Attestation Discharge Coordination Time (in mins): 35 Quality: Safe Use of Opioids Does Pt have an Active Cancer Diagnosis on the Problem List?: No Quality: Stroke Does the patient have a stroke diagnosis?: No Physical Exam Vital Signs: Vital Signs: Last Vital Signs Temp 98.0 F 04/21/25 12:00 Pulse 65 04/21/25 12:00 Resp 20 04/21/25 12:00 BP 139/68 04/21/25 12:00 Pulse Ox 98 04/21/25 12:00 O2 Del Method Room Air 04/21/25 12:00 BMI result Body Mass Index 27.1 Const: Other: Awake alert no acute distress Resp: Other: Clear to auscultation bilaterally no rales rhonchi or wheezes Cardio: Other: No S4; positive S1-S2; no S3 murmurs rubs or gallops GI: Other: Soft nontender nondistended normoactive bowel sounds Extrem: Other: No edema bilaterally DS: Data Data Completed and Pending Labs on day of discharge: Laboratory Results - last 24 hr 04/20/25 04/21/25 16:11 07:34 Sodium 133 L Potassium 4.9 Chloride 99 Carbon Dioxide 26 Anion Gap 13 BUN 14 Creatinine 1.54 H Estim Creat Clear Calc 27.4 Estimated GFR 43 Random Glucose 90 Calcium 9.2 Random Cortisol 13.5 Urine Osmolality 250 L Ur Random Sodium 73.0 Urine Creatinine 34.89 Discharge Plan Discharge Anticipated Discharge Date/Time: 04/21/25 12:44 Patient Disposition: Home Health Service Discharge Diagnosis: Ischemia left lower extremity Referrals: Leonor Deleon PA-C [Primary Care Provider, Internal Medicine] - 1 Week Discharge Medications: New levothyroxine [Synthroid] 100 mcg Tablet 100 mcg PO DAILY@0600 Qty: 30 0RF aspirin 81 mg Tablet,Chewable 81 mg PO DAILY Qty: 30 0RF metoprolol succinate 25 mg tablet extended release 24 hr 12.5 mg PO DAILY 30 Days Qty: 15 0RF Continued atorvastatin 40 mg tablet 40 mg PO DAILY lisinopril 10 mg tablet 10 mg PO DAILY hydrochlorothiazide 25 mg tablet 25 mg PO DAILY Discontinued levothyroxine 88 mcg tablet 88 mcg PO DAILY Discharge Orders: Discharge Order (Routine); Ordered 04/21/25 Ordered By: Reed Diaz Diet: Advance to usual diet Activity on Discharge: As tolerated Stand Alone Forms: Patient Portal Discharge page Print Language: Telugu Care Plan Goals: Resume all meds as taken prior to hospitalization Health Concerns: Metoprolol 12.5 mg has been added to your regimen as well as a chewable aspirin. Your levothyroxine has been increased to 100 mcg daily Plan of Treatment: Follow up with Cardiology and your primary care as scheduled Assessment: See discharge summary
--- NOTE | 2025-04-21 13:07 | MHC.CM.PN ---
Patient has been medically cleared for dc to home today, with services. A referral was made to [facility], who has been made aware of today's dc. Last IMM was addressed yesterday.
--- NOTE | 2025-04-21 13:11 | P.F2F_ITS ---
Service Date Service Date: 04/21/25 Encounter Date of encounter: 04/21/25 Encounter: Acute hospitalization Reasons for Services Signs and symptoms assessed: Assess heart rate and response to therapies Reason for halfway: medication management, medication treatment and teach disease management Homebound: Leaving the home is medically contraindicated at this time without the asist of a device and/or another person due th the listed conditions above and below. Reason homebound: unsteady gait / fall risk and unable to drive Certification: Based on the above findings, I certify that this patient is confined to the home and needs intermittent halfway care, physical therapy and/or speech therapy, or continues to need occupational therapy. The patient is under my care, and I have initiated the establishment of the plan of care. The patient will be followed by a physician who will periodically review the plan of care. Time Spent With Patient Time: Total time managing care of this patient today ____ minutes.
--- NOTE | 2025-04-21 13:25 | MHC.SL.SWA ---
Speech Pathologist Impression: Risk of Aspiration Due to: Dysphasia Diet Status: Liquid Consistency and Strategies for Safe Swallow: Liquid Intake Recommendation: Thin Liquid Intake Strategies: Solid Food Consistency: Dietary Recommendations: Regular Additional Modifications to Solid Foods: Oral Medication Intake: Whole with Liquid Please contact the pharmacy regarding appropriate crushable or liquid drug formulations that are available whenever modified delivery is recommended. Compensatory Strategies and Precautions to be Taken for Safe Swallow: Supervision While Eating and Drinking for Safe Swallow: None Needed Foods to Avoid: Swallowing Recommended Treatments: Recommendation for Speech: NA:Typical Evaluation Comment: Patient presents with mild oral phase dysphagia secondary to absent dentition, all other aspects of swallow WFL. Discussed with daughter who is aware of occasional difficulty due to dentition, offers softer, more cohesive but regular foods at home, which is appropriate. Daughter aware to elect these types of foods from the regular menu while in hospital. Recommend patient return to REGULAR diet with THIN Liquids, pills whole with liquid. MD/RD notified by secure text RN in [employer]. Frequency/Duration: Date Range for Service Req: Timeline to reassess: Freezer Unloader Clinican/Clinical Fellow: No Supervisory Statement: I have reviewed and agree with the student/clinical fellow's documentation: N/A Speech Language Pathologist: Tracy Lawson M.A., CCC-[facility]
--- NOTE | 2025-05-12 07:29 | P.CDIM_ITS ---
PROVIDER RESPONSE TEXT: To clarify, the appropriate diagnosis supported by the clinical indicators: CKD 3 QUERY TEXT: PHYSICIAN'S DOCUMENTATION REQUEST Date of Query: 05/07/2025 09:03 AM EST Patient Name: Benedict Ya Admit Date: 04/19/2025 Dear Reed Diaz DO, RETROSPECTIVE QUERY A review of the medical record indicates additional documentation may be needed. Please review below and update the documentation accordingly. Clinical Indicators: Ed 04/18/25 - CKD H&P 04/19/25 - CKD, Cr at baseline Progress note 04/19/25 - CKD 3/4, monitor cr. Please clarify which of the following accurately represents the Stage of the noted CKD: CKD 3 CKD 4 Other stage Other (explain) Clinically unable to determine (explain) Thank you, Renae Campbell, CCS, CDIS Use of terms such as suspected, likely, concern for, or probable (associated with a specific diagnosis that is being evaluated, monitored, or treated as if it exists) are acceptable and can be coded in the inpatient setting, when documented at the time of discharge. Please use your independent medical judgment in providing your response. THIS QUERY IS PART OF THE PERMANENT MEDICAL RECORD
== END 2025-04-21 15:22 | disposition home health service (06) | DRG 309 ==
LOC: HO.ED 22:37 → HO.EDOVER 04-19 04:42 → HO.IMC 04-19 11:14
PROVIDERS: Family Medicine; Admitting Provider Physician Assistant; Emergency Provider Emergency Medicine; PCP Physician Assistant; Visit Provider Hospitalist
DX: I47.20 Ventricular tachycardia, unspecified (principal); E87.1 Hypo-osmolality and hyponatremia; I73.9 Peripheral vascular disease, unspecified; I12.9 Hypertensive chronic kidney disease with stage 1 through stage 4 chronic kidney disease, or unspecified chronic kidney disease; E87.5 Hyperkalemia; I25.10 Atherosclerotic heart disease of native coronary artery without angina pectoris; I25.2 Old myocardial infarction; T50.2X5A Adverse effect of carbonic-anhydrase inhibitors, benzothiadiazides and other diuretics, initial encounter; E03.9 Hypothyroidism, unspecified; F03.90 Unspecified dementia, unspecified severity, without behavioral disturbance, psychotic disturbance, mood disturbance, and anxiety; N18.30 Chronic kidney disease, stage 3 unspecified; E78.5 Hyperlipidemia, unspecified; I49.3 Ventricular premature depolarization; Z79.890 Hormone replacement therapy; Z79.899 Other long term (current) drug therapy
CPT/HCPCS: 36415; 71045; 73706; 80048; 80076; 82533; 82550; 82570; 83735; 83880; 83930; 83935; 84300; 84439; 84443; 84484; 85025; 85027; 85610; 85730; 92610; 93005; 93306; 93970; 99285; J1644; J1650; Q9957; Q9967

== ENCOUNTER → 2025-04-18 22:28 | Outpatient (BNV) | payer MEDICARE, MEDICAID, SELFPAY | PROVIDERS: Admitting Provider Physician Assistant; Emergency Provider Emergency Medicine; PCP Physician Assistant; Visit Provider Internal Medicine Cardiovascular Disease | DX: R94.31 Abnormal electrocardiogram [ECG] [EKG] (principal); M79.89 Other specified soft tissue disorders | CPT/HCPCS: 93010 ==

== ENCOUNTER 2025-04-19 04:23 | Outpatient (BNV) | payer MEDICARE, MEDICAID, SELFPAY | END 2025-04-19 07:20 | PROVIDERS: Admitting Provider Physician Assistant; Emergency Provider Emergency Medicine; PCP Physician Assistant; Visit Provider Radiology Diagnostic Radiology | DX: R22.43 Localized swelling, mass and lump, lower limb, bilateral (principal); I70.92 Chronic total occlusion of artery of the extremities; M31.9 Necrotizing vasculopathy, unspecified | CPT/HCPCS: 93970 ==

== ENCOUNTER → 2025-04-19 04:23 | Outpatient (BNV) | payer MEDICARE, MEDICAID, SELFPAY | PROVIDERS: Admitting Provider Physician Assistant; Emergency Provider Emergency Medicine; PCP Physician Assistant; Visit Provider Family Medicine | DX: I47.29 Other ventricular tachycardia (principal); E03.9 Hypothyroidism, unspecified | CPT/HCPCS: 99232 ==

== ENCOUNTER → 2025-04-19 04:23 | Outpatient (BNV) | payer MEDICARE, MEDICAID, SELFPAY | PROVIDERS: Admitting Provider Physician Assistant; Emergency Provider Emergency Medicine; PCP Physician Assistant; Visit Provider Surgery Vascular Surgery | DX: I99.8 Other disorder of circulatory system (principal) | CPT/HCPCS: 99222 ==

== ENCOUNTER → 2025-04-19 04:23 | Outpatient (BNV) | payer MEDICARE, MEDICAID, SELFPAY | PROVIDERS: Admitting Provider Physician Assistant; Emergency Provider Emergency Medicine; PCP Physician Assistant; Visit Provider Internal Medicine Cardiovascular Disease | DX: I47.29 Other ventricular tachycardia (principal); I25.10 Atherosclerotic heart disease of native coronary artery without angina pectoris | CPT/HCPCS: 99233 ==